=== PATIENT | female | born 1970 | race Caucasian/White ===

== ENCOUNTER 2019-08-16 17:28 | Emergency (ER) | payer BC ==
--- OUTSIDE RECORDS SUMMARY | 2019-08-16 17:30 | XMS REPORT | Summary of Care ---
:1970 Author Organization [facility] Address [address] [place] [address] Care Team Providers Name Role Phone Ana Patino MD Primary Care Provider Reason for Visit Reason Comments LAB Encounter Details Date Type Department Care Team Description 03/10/2019 Case Management Director Visit [facility] Wilman Rea MD [address] [place] [address] Menorrhagia with Professional Office 2, [facility] Lab irregular cycle Building Phlebotomy Lab Professional Office Building [address] [facility] , [address] [place] [address] Allergies Active Allergy Reactions Severity Noted Date Comments Morphine Nausea and/or Vomiting 08/22/2016 documented as of this encounter (statuses as of 03/10/2019) Medications Medication Sig Dispensed Refills Start Date End Date Status blood sugar Check fingerstick 1 Box 2 11/27/2018 Active diagnostic (ONETOUCH glucose 3 times a ULTRA BLUE TEST day before meals STRIP) stripIndications: Nausea and vomiting in adult patient sitaGLIPtin (JANUVIA) Take 1 tablet by 30 tablet 5 12/15/2018 Active 25 mg mouth daily. tabletIndications: Nausea and vomiting in adult patient metFORMIN 500 mg Take 1 tablet by 30 tablet 5 12/15/2018 Active tabletIndications: mouth daily. Nausea and vomiting in adult patient peg-electrolyte soln Take 4,000 mL by 4000 mL 0 01/08/2019 Active 236-22.74-6.74 -5.86 mouth gram SEE-INSTRUCTIONS. solutionIndications: Take as directed [facility], or Other Ordered Dose Route Frequency Start Date End Date Status Facility Administered Medication medroxyPROGESTERone 150 mg IM MONTHLY 03/10/2019 06/11/2019 Active (DEPO-PROVERA) injection 150 mg documented as of this encounter (statuses as of 03/10/2019) Active Problems Problem Noted Date Colon polyps 01/18/2019 Acid indigestion 01/08/2019 Overview: Added automatically from request for surgery [id number] Mammogram abnormal 12/24/2018 Overview: 12/24/18 - left breast normal. Right breast focal asymmetry in right upper outer breast. 12/30/18- Right breast ultrasound revealed localized dense breast tissue with 2 small cystic lesions noted at 11 and 12 o'clock. Category II. Annual b/l mammogram recommended. Hepatomegaly 12/20/2018 Anemia due to chronic blood loss 12/16/2018 Menorrhagia with irregular cycle 12/16/2018 Overview: 12/30/18 - EMB benign. DepoProvera started. Hematochezia 12/16/2018 Left ovarian cyst 12/16/2018 Intramural leiomyoma of uterus 12/16/2018 Overview: 12/24/18 - Pelvic US revealed a moderately enlarged uterus, measuring 12.7 x 7.4 x 8.6 cm with a large 5.5 x 4 cm size fibroid in the left side of uterus which is slightly distorting and pushing the endometrial lining. Endometrial echo complex is 12.3 mm. Right ovary measures 3.6 x 2.4 x 2.0 cm and left ovary measures 4.4 x 2.2 x 1.5 cm. Previously visualized left ovarian cyst in the CT scan of 11/26/2018 has decreased in size and it is measuring approximately 16 mm at this time. 24 mm cyst also noted in the right ovary containing thick fluid. Small bilateral ovarian cysts, likely physiologic. Atypical chest pain 11/26/2018 Obesity (BMI 30-39.9) 11/26/2018 Type 2 diabetes mellitus without complication 11/26/2018 GAN (dyspnea on exertion) 11/26/2018 Dyslipidemia 11/26/2018 Family history of premature CAD 11/26/2018 documented as of this encounter (statuses as of 03/10/2019) Resolved Problems Problem Noted Date Resolved Date Nausea & vomiting 11/26/2018 12/15/2018 documented as of this encounter (statuses as of 03/10/2019) Social History Tobacco Use Types Packs/Day Years Used Date Never Smoker Smokeless Tobacco: Never Used Alcohol Use Drinks/Week oz/Week Comments No Sex Assigned at Date Recorded Not on file Job Start Date Occupation Industry Not on file Not on file Not on file Travel History Travel Start Travel End No recent travel history available. documented as of this encounter Last Filed Vital Signs Not on filedocumented in this encounter Plan of Treatment Date Type Specialty Care Team Description 03/16/2019 Office Visit Family Medicine Ana Patino MD [address] [place] [address] [place]NELLY [address] 04/07/2019 Nurse Visit Obstetrics & Gynecology Nurse, [facility] Name Type Priority Associated Diagnoses Order Schedule CBC WITH DIFFERENTIAL LAB Routine Menorrhagia with irregular Ordered: 03/10 cycle Health Maintenance Due Date Last Done Comments PNEUMOCOCCAL 0-64 YEARS COMBINED 1975 SERIES (1 of 1 - PPSV23) URINE MICROALBUMIN 1979 FOOT EXAM 1987 DTaP,Tdap,and Td Vaccines (1 - 02/12/1988 Tdap) Zoster Recombinant Vaccine 2019 (SHINGRIX) (1 of 2) INFLUENZA VACCINE (#1) 2019 HgA1C 05/28/2019 11/25/2018 LDL-C 11/27/2019 11/26/2018 CREATININE (SERUM) 11/28/2019 11/27/2018, 11/26/2018, 11/26/2018, Additional history exists MAMMOGRAM 12/25/2019 12/24/2018 EYE EXAM 01/06/2020 01/05/2019 PAP SMEAR 12/16/2021 12/16/2018 COLONOSCOPY 01/18/2022 01/18/2019, 01/18/2019 documented as of this encounter Results Not on filedocumented in this encounter Visit Diagnoses Diagnosis Menorrhagia with irregular cycle Excessive or frequent menstruation documented in this encounter Insurance Payer Benefit Plan Subscriber ID Effective Dates Phone Address Type / Group BCBS OF [facility] [id number] 2018-Beth [phone] [address] PPO/POS [place] [id number] [place] [address] [phone] (Work) documented as of this encounter
--- OUTSIDE RECORDS SUMMARY | 2019-08-16 17:30 | XMS REPORT ---
:1970 [facility] Address [address] Osorio [address] [place] [address] Care Team Providers Name Role Phone Unavailable Unavailable Unavailable Problems This patient has no known problems. Allergies, Adverse Reactions, Alerts This patient has no known allergies or adverse reactions. Medications This patient has no known medications.
--- OUTSIDE RECORDS SUMMARY | 2019-08-16 17:31 | XMS REPORT | Summary of Care ---
:1970 Author Organization [facility] Address [address] [place] [address] Care Team Providers Name Role Phone Ana Patino MD Primary Care Provider Reason for Visit Reason Comments Vaginal Bleeding Heavy Encounter Details Date Type Department Care Team Description 03/10/2019 Office Visit [facility] Women[facility] Dic[facility], Menorrhagia with irregular cycle (Primary Dx); Healthcare- Marilyn Stovall MD Intramural leiomyoma of uterus [address] [facility], [address] [facility] [address] [place] [address] [phone] Allergies Active Allergy Reactions Severity Noted Date [...] Overview: Added automatically from request for surgery [id number] Mammogram abnormal 12/24/2018 Overview: 12/24/18 - left [...] of this encounter Last Filed Vital Signs Vital Sign Reading Time Taken Comments Blood Pressure 152/87 03/10/2019 9:42 AM CDT Pulse 76 03/10/2019 9:42 AM CDT Temperature 36.9 C (98.4 F) 03/10/2019 9:38 AM CDT Respiratory Rate 18 03/10/2019 9:38 AM CDT Oxygen Saturation - - Inhaled Oxygen Concentration - - Weight 81.5 kg (179 lb 9.6 oz) 03/10/2019 9:38 AM CDT Height - - Body Mass Index 33.94 01/26/2019 3:48 PM CDT documented in this encounter Progress Notes Shahida Gutiérrez RN - 03/10/2019 9:30 AM CDT49 year old female has been identified by and name. Verbal consent has been obtained by patientto have an injection of Depo Provera, as ordered by the provider. Date of last Depo Provera injection: 12/30/2018 Last Pap Smear: 12/16/2018 Encounter Diagnosis: AUB The site was cleaned with an alcohol swab and given intramuscularly (IM) in the left deltoid. A band aid dressing was then applied to the injection site. The patient tolerated the procedure well. RTCin 1 month for next shot. Understanding verbalized. ilman Rea MD - 03/10/2019 9:30 AM CDT Chief complaint: Chief Complaint Patient presents with Vaginal Bleeding Heavy HPI: The patient is a 49 yo HF LMP about 4 weeks ago who comes in for follow-up. I saw her initially on 12/16/18 regarding a number of gynecologic complaints. She was hospitalized in November for atypical chest pain and during that hospitalization, she was diagnosed with Type II DM. Hemoglobin A1C was 9.[address] scan of the abd/pelvis was done to LLQ pain and hematochezia. This revealed mildly thickened loops of fluid-filled small bowel within the left hemiabdomen c/w enteritis and there was a 5.5 cm x 4.9 cm x 5.1 cm intramural leiomyoma along the left anterior uterine body and a 3.1 cmlikely left ovarian cyst. She was started on Metformin and Januvia for her DM and the chest pain didnot appear to be cardiac. In terms of her gynecologic history, she reports heavy, prolonged, irregular menses for the last 1-2 years. She is s/p a prior tubal ligation and does not desire future . She was noted to be mildly anemic with a Hgb of 10 and her TSH was normal during her recent hospitalization. Her initial exam was notable for an enlarged uterus and left adnexal tenderness. A pap smear was normal, HPV co-testing was negative and a pelvic US on 12/24/18 revealed an enlarged uterus measuring approximately 12.7 x 7.4 x 8.6 cm with a large 5.5 x 4 cm size fibroid in the left side of uterus which is slightly distorting and pushing the endometrial lining. Endometrial stripe was 12.3 mm. The right ovary measured 3.6 x 2.4 x 2.0 cm with a small 2.4 cm cyst and the left ovary measured 4.4 x 2.2 x 1.5 cm with a benign appearing cyst measuring 1.5 cm. Endometrial sampling on 12/30/18 revealed a benign polyp. We discussed several options for her menstrual related symptoms and she opted forDepoProvera. She received her initial dose on 12/30/18 and was supposed to return in January for her second dose but is just now returning. A screening mammogram on 12/24/18 revealed some atypical features in the upper outer right breast. A right breast US on 12/30/18 revealed two small benign cysts for which annual f/u is recommended. Dr. Sarmiento performed upper and lower endoscopies on 01/18/19 which revealed a stomach polyp and a benign tubular adenoma in her colon. She was started on Protonix but stopped this on her own. A repeat colonoscopy should be done in 5 years. She returns today, reports that she has had several weeks of heavy bleeding with clots. She has not been taking her DM medications either and has an appointment next week with Dr. Patino. She is thinking about moving towards having a hysterectomy. Histories OB History Para Term AB Living 2 2 2 2 SAB TAB Ectopic Multiple Live Births 2 # Outcome Date GA Lbr Luis Miguel/2nd Weight Sex Delivery Anes PTL Lv 2 Term 1996 F VAGINAL ANNIE 1 Term 1990 M VAGINAL ANNIE Obstetric Comments 1 ectopic Past Medical History: Diagnosis Date Anemia due to chronic blood loss 12/16/2018 Atypical chest pain 11/26/2018 Colon polyps 01/18/2019 Dyslipidemia 11/26/2018 Heart murmur Hepatomegaly 12/20/2018 Intramural leiomyoma of uterus 12/16/2018 Obesity Transfusion history 1986 Type 2 diabetes mellitus without complication 11/26/2018 Family History Problem Relation Age of Onset Coronary Heart Disease Mother Coronary Heart Disease Father Colon Cancer Father Family Status Relation Name Status Mo Fa Past Surgical History: Procedure Laterality Date COLONOSCOPY N/A 01/18/2019 Surgeon: Vikki Sarmiento MD; Location: [facility] OR [facility] ESOPHAGOGASTRODUODENOSCOPY N/A 01/18/2019 Surgeon: Vikki Sarmiento MD; Location: [facility] OR [facility] OTHER some hip and knee surgeries TUBAL LIGATION Social History Socioeconomic History Marital status: Spouse name: Not on file Number of children: Not on file Years of education: Not on file Highest education level: Not on file Occupational History Not on file Social Needs Financial resource strain: Not on file Food insecurity: Worry: Not on file Inability: Not on file Transportation needs: Medical: Not on file Non-medical: Not on file Tobacco Use Smoking status: Never Smoker Smokeless tobacco: Never Used Substance and Sexual Activity Alcohol use: No Drug use: No Sexual activity: Yes Partners: Male control/protection: Surgical Lifestyle Physical activity: Days per week: Not on file Minutes per session: Not on file Stress: Not on file Relationships Social connections: Talks on phone: Not on file Gets together: Not on file Attends mormonism service: Not on file Active member of club or organization: Not on file Attends meetings of clubs or organizations: Not on file Relationship status: Not on file Intimate partner violence: Fear of current or ex partner: Not on file Emotionally abused: Not on file Physically abused: Not on file Forced sexual activity: Not on file Other Topics Concern Not on file Social History Narrative 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 Social History Substance and Sexual Activity Sexual Activity Yes Partners: Male control/protection: Surgical Labs I have reviewed the patient's labs. Radiology No new radiology. Allergies Giovanni is allergic to morphine. Medications Giovanni has a current medication list which includes the following prescription( s): peg-electrolyte soln, metformin, sitagliptin, and blood sugar diagnostic. Review of Systems Constitutional: Negative. Respiratory: Negative. Cardiovascular: Negative. Gastrointestinal: Negative. Genitourinary: Positive for menstrual problem and pelvic pain. Neurological: Negative. BP (!) 149/87 (BP Location: Left arm, Patient Position: Sitting, BP CUFF SIZE: Adult Medium) | Pulse 74 | Temp 36.9 C (98.4 F) (Oral) | Resp 18 | Wt 179 lb 9.6 oz (81.5 kg) | BMI 33.94 kg/m Pregravid BMI: Could not be calculated Physical Exam Vitals reviewed. Constitutional: She is oriented to person, place, and time. She appears well- developed and well-nourished. Cardiovascular: Regular rate and rhythm. Pulmonary/Chest: Normal inspiratory effort. Neuro/Psychiatric: She has a normal mood and affect. She is oriented to person, place, and time. Assessment/Plan Menorrhagia with irregular cycle (primary encounter diagnosis) Intramural leiomyoma of uterus Comment: I discussed with the patient that she needs to be compliant with treatment recommendations,especially with her DM medications. Poorly controlled DM poses an unacceptable surgical risks. That being said, doing a hysterectomy at this time is not going to be an option. I recommend that she restart monthly DepoProvera and f/u with me in 3 months. She was encouraged to restart her DM meds and follow any additional recommendations by Dr. Patino. Plan: RTC in 3 months Wilman Rea MD 03/10/2019 10:03 AM documented in this encounter Plan of Treatment Date Type Specialty Care Team Description 03/10/2019 Ride Operator Visit Phlebotomy Wilman Rea MD [address] [place] [address] Menorrhagia with 2, [facility] Lab irregular cycle 03/16/2019 Office Visit Family Medicine Ana Patino MD [address] [place] [address] [place]NELLY [address] 04/07/2019 Nurse Visit Obstetrics & Nurse, [facility] Gynecology Women's Health Name Type Priority Associated Diagnoses Order Schedule CBC WITH DIFF LAB Routine Menorrhagia with irregular Expected: 03/10/2019, cycle Expires: 06/10/2019 Health Maintenance Due Date Last Done Comments [...] Visit Diagnoses Diagnosis Menorrhagia with irregular cycle - Primary Excessive or frequent menstruation Intramural leiomyoma of uterus documented in this encounter Administered Medications Medication Order MAR Action Action Date Dose Rate Site medroxyPROGESTERone Given 03/10/2019 9:57 150 mg Left Deltoid-IM (DEPO-PROVERA) injection 150 AM CDT mg 150 mg, Intramuscular, MONTHLY, 3 doses, First dose on Fri03/10/19 at 1000, Last dose on Fri05/11/19 at 1000, Routine documented in this encounter Insurance Payer Benefit Plan Subscriber ID Effective Dates Phone Address Type / Group BCBS OF [facility] [id number] 2018-Prese [phone] [address] PPO/POS [place] nt [id number] [place] [address] [phone] (Work) documented as of this encounter"
--- OUTSIDE RECORDS SUMMARY | 2019-08-16 17:31 | XMS REPORT | Summary of Care ---
:1970 Author Organization [facility] [employer] [facility] Address [address] [place] [address] Care Team Providers Name Role Phone Ana Patino MD Primary Care Provider Reason for Visit Reason Comments Vaginal Bleeding Heavy Encounter Details Date Type Department Care Team Description 03/10/2019 Office Visit [facility] Women's Dic[facility], Menorrhagia with irregular cycle (Primary Dx); Healthcare- Marilyn Stovall MD Intramural leiomyoma of uterus [address] [facility], [address] [facility] [address] [place] [address] [phone] Allergies Active Allergy Reactions Severity Noted Date [...] Overview: Added automatically from request for surgery [id number] Mammogram abnormal 12/24/2018 Overview: 12/24/18 - left [...] N/A 01/18/2019 Surgeon: Vikki Sarmiento MD; Location: [facility] OR [facility] ESOPHAGOGASTRODUODENOSCOPY N/A 01/18/2019 Surgeon: Vikki Sarmiento MD; Location: [facility] OR [facility] OTHER some hip and knee [...] file Gets together: Not on file Attends methodist service: Not on file Active member of [...] 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 Social History Substance and [...] Date Type Specialty Care Team Description 03/10/2019 Manager Consumer Insights Visit Phlebotomy Wilman Rea MD [address] [place] [address] Menorrhagia with 2, Adc Lab irregular cycle 03/16/2019 Office Visit Family Medicine Ana Patino MD [address] [place] [address] [place] DONNELLY [address] 04/07/2019 Nurse Visit Obstetrics & Nurse, [facility] Gynecology Women's Health Name Type Priority Associated [...] Phone Address Type / Group BCBS OF [facility] [id number] 2018-Prese [phone] [address] PPO/POS [place] nt [id number] [place] [address] [phone] (Work) documented as of this encounter"
--- OUTSIDE RECORDS SUMMARY | 2019-08-16 17:32 | XMS REPORT | Summary of Care ---
:1970 Author Organization [facility] Address [address] [place] [address] Care Team Providers Name Role Phone Ana Patino MD Primary Care Provider Reason for Visit Reason Comments High Blood Sugar X 3 weeks LAB WORK Encounter Details Date Type Department Care Team Description 03/25/2019 [facility] Aspen Faulkner FNP Type 2 diabetes mellitus without complication, without long-term current use of insulin (Primary Dx); Medicine - [address] Essential hypertension; [address] [place] [address] [address] Flank pain [place], [place] [id number] [place], [place] [phone] [id number] Allergies Active Allergy Reactions Severity Noted Date Comments Morphine Nausea and/or Vomiting 08/22/2016 documented as of this encounter (statuses as of 03/25/2019) Medications Medication Sig Dispensed Refills Start Date End Date Status blood sugar Check fingerstick 1 Box 2 11/27/2018 Active diagnostic (ONETOUCH glucose 3 times a ULTRA BLUE TEST day before meals STRIP) stripIndications: Nausea and vomiting in adult patient sitaGLIPtin Take 1 tablet by 30 tablet 5 12/15/2018 Active (JANUVIA) 25 mg mouth daily. tabletIndications: Nausea and vomiting in adult patient metFORMIN 500 mg Take 1 tablet by 30 tablet 5 12/15/2018 Active tabletIndications: mouth daily. Nausea and vomiting in adult patient peg-electrolyte soln Take 4,000 mL by 4000 mL 0 01/08/2019 Active 236-22.74-6.74 -5.86 mouth gram SEE-INSTRUCTIONS. solutionIndications: Take as directed Hematochezia lisinopril 10 mg Take 1 tablet by 30 tablet 2 03/25/2019 06/23/2019 Active tabletIndications: mouth daily for 90 Type 2 diabetes days. mellitus without complication, without long-term current use of insulin, Essential hypertension Hospital, Clinic, or Other Ordered Dose Route Frequency Start Date End Date Status Facility Administered Medication medroxyPROGESTERone 150 mg IM MONTHLY 03/10/2019 06/11/2019 Active (DEPO-PROVERA) injection 150 mg documented as of this encounter (statuses as of 03/25/2019) Active Problems Problem Noted Date Colon polyps 01/18/2019 Acid indigestion 01/08/2019 Overview: Added automatically from request for surgery [id number] Mammogram abnormal 12/24/2018 Overview: 12/24/18 - left [...] as of this encounter (statuses as of 03/25/2019) Resolved Problems Problem Noted Date Resolved Date Nausea & vomiting 11/26/2018 12/15/2018 documented as of this encounter (statuses as of 03/25/2019) Social History Tobacco Use Types Packs/Day Years [...] Sign Reading Time Taken Comments Blood Pressure 140/70 03/25/2019 10:58 AM CDT Pulse 77 03/25/2019 10:58 AM CDT Temperature 36.9 C (98.5 F) 03/25/2019 10:58 AM CDT Respiratory Rate - - Oxygen Saturation 99% 03/25/2019 10:58 AM CDT Inhaled Oxygen Concentration - - Weight 81.6 kg (180 lb) 03/25/2019 10:58 AM CDT Height 154.9 cm (5' 1") 03/25/2019 10:58 AM CDT Body Mass Index 34.01 03/25/2019 10:58 AM CDT documented in this encounter Progress Notes Aspen Faulkner FNP - 03/25/2019 10:40 AM CDT Cc: Chief Complaint Patient presents with High Blood Sugar X 3 weeks LAB WORK Giovanni Jorge is a 49 year old female. Patient is a newly diagnosed diabetes, with initial A1C was 9. She is here as a 3 month follow up. Her blood sugars remain on average >250, and sometimes 300 's. Diabetes Mellitus Type II, Follow-up: Patient here for follow-up of Type 2 diabetes mellitus. Current symptoms/problems include uncontrolled blood sugar readings and have been since last visit. Symptoms have been present for few days. Known diabetic complications: peripheral neuropathy (bilateral foot pain and tingling sometimes, butjust came back from hiking trip and cardiovascular disease (persistent elevated blood pressures) Cardiovascular risk factors: family history, diabetes mellitus, obesity, sedentary life style and stress Current diabetic medications include Januvia and metformin. Eye exam current (within one year): yes Weight trend: Obesity, unchanged Prior visit with towel distributor: No but referral made last visit Current diet: Not as healthy ut working n it. Current exercise: None due to work scheduled Current monitoring regimen: office lab tests - q 3 months Home blood sugar records: Diabetes glucometer results average 250's fasting Any episodes of hypoglycemia? None Is She on SIMON inhibitor or angiotensin II receptor dewayne? No: will start today Allergies Giovanni is allergic to morphine. Medications Outpatient Medications Prior to Visit Medication Sig Dispense Refill peg-electrolyte soln 236-22.74-6.74 -5.86 gram solution Take 4,000 mL by mouth SEE-INSTRUCTIONS.Take as directed 4000 mL 0 metFORMIN 500 mg tablet Take 1 tablet by mouth daily. 30 tablet 5 sitaGLIPtin (JANUVIA) 25 mg tablet Take 1 tablet by mouth daily. 30 tablet 5 blood sugar diagnostic (ONETOUCH ULTRA BLUE TEST STRIP) strip Check fingerstick glucose 3 times a day before meals 1 Box 2 Facility-Administered Medications Prior to Visit Medication Dose Route Frequency Provider Last Rate Last Dose medroxyPROGESTERone (DEPO-PROVERA) injection 150 mg 150 mg Intramuscular MONTHLY Wilman Rea MD 150 mg at 03/10/19 0957 Histories Past Medical History: Diagnosis Date Anemia due to chronic blood loss 12/16/2018 Atypical chest pain 11/26/2018 Colon polyps 01/18/2019 Dyslipidemia 11/26/2018 Heart murmur Hepatomegaly 12/20/2018 Intramural leiomyoma of uterus 12/16/2018 Obesity Transfusion history 1987 Type 2 diabetes mellitus without complication 11/26/2018 Past Surgical History: Procedure Laterality Date COLONOSCOPY N/A 01/18/2019 Surgeon: Vikki Sarmiento MD; Location: [facility] OR [facility] ESOPHAGOGASTRODUODENOSCOPY N/A 01/18/2019 Surgeon: Vikki Sarmiento MD; Location: [facility] OR 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 Family History Problem Relation Age of Onset Coronary Heart Disease Mother Coronary Heart Disease Father Colon Cancer Father Review of Systems Constitutional: Positive for weight gain. Respiratory: Negative. Negative for apnea, cough, choking, chest tightness, shortness of breath andwheezing. Cardiovascular: Negative. Negative for chest pain, palpitations and leg swelling. Gastrointestinal: Negative. Skin: Negative. Neurological: Negative. Endocrine: Endocrine negativePositive for weight gain. diabetic Vital Signs BP (!) 140/70 (BP Location: Left arm, Patient Position: Sitting, BP CUFF SIZE: Adult Medium) | Pulse 77 | Temp 36.9 C (98.5 F) (Oral) | Ht 5' 1" (1.549 m) | Wt 180 lb (81.6 kg) | SpO2 99% | BMI 34.01 kg/m Physical Exam Constitutional: She is oriented to person, place, and time. She appears well- developed and well-nourished. HENT: Head: Normocephalic. Right Ear: External ear normal. Left Ear: External ear normal. Nose: Nose normal. Neck: Normal range of motion. Neck supple. Cardiovascular: Normal rate, regular rhythm, normal heart sounds and intact distal pulses. Exam reveals no gallop and no friction rub. No murmur heard. Pulses: Dorsalis pedis pulses are 3+ on the right side. Posterior tibial pulses are 3+ on the right side. Pulmonary/Chest: Effort normal and breath sounds normal. No respiratory distress. She has no wheezes. She has no rales. She exhibits no tenderness. Abdominal: Soft. Bowel sounds are normal. She exhibits no distension. There is no tenderness. There is CVA tenderness (bilateral). Feet: Right Foot: Skin Integrity: Negative for ulcer or skin breakdown. Left Foot: Skin Integrity: Negative for ulcer or skin breakdown. Neurological: She is alert and oriented to person, place, and time. Skin: Skin is warm and dry. Capillary refill takes less than 2 seconds. No rash noted. No erythema. No pallor. Psychiatric: She has a normal mood and affect. Nursing note and vitals reviewed. Sensory exam of the foot is normal, tested with the monofilament. Good pulses, no lesions or ulcers,good peripheral pulses. Assessment/Plan 1. Diabetes II: will re-eval A1C, with lipids, CMP, microalbumin. Continue current anti-diabetic medication(s). Reviewed the principles of following a diabetic diet including the concept of glycemic index. Exercise regularly. Self monitor glucose once daily beforebreakfast and bring record to each visit. Continue care with the Household Chores at least annually for diabetic eye exam. See the Undercutter Operator for routine foot care and diabetic shoes if appropriate. A1C to be repeated in 3 months if still not at goal or improved at all with the current regimen. 2. Obesity, Nutritional counseling, Exercise counseling Continue care with scoop operator as referral was already made. Routine exercise and healthy diet encouraged. Nutritional/Exercise Counseling and Education: - Counseled on diet, exercise, weight control and goals 3.Hypertension: Will initiate therapy with lisinopril 10mg for the persistent elevated blood pressures as well as for nephroprotection. TSH, CMP, CBC Ordered. Monitor blood pressures at home routinely, first thing in the morning and last thing before bed, record the readings. If consistently >130/80, please RTC for medication management. If with acute chestpain, jaw pain, numbness and tingling radiating to arm, with or without respiratory distress, please go to the ER. 4. Flank pain on exam: UA and culture added to lab to r/o acute bladder infection. Hydration and proper hygiene encouraged. Further interventions to follow depending on study results. Plan of care, desired health behaviors, goals, and medication discussed with patient. Education resources provided and reviewed with AVS. Patient/guardian/family verbalized understanding & agrees to plan of care. This visit did not involve counseling and coordination that comprised more than 50% of the visit time. If applicable, the [facility] database was accessed to review any controlled substance prescription claims data. The [employer] prescription claims data in [employer] was reviewed to assess patient compliance with the medication treatment plan. lsy Hassan - 03/25/2019 10:40 AM CDTVenipuncture Collection performed by clean technique. Total of 1 attempts were made. Slight pressureand a bandage/ dressing were applied to the site(s). The patient experienced no complications. Specimens were sent processed to [facility] laboratories. documented in this encounter Plan of Treatment Date Type Specialty Care Team Description 04/07/2019 Nurse Visit Obstetrics & Gynecology Nurse, [facility] Women's Health 06/24/2019 Office Visit Family Medicine Ana Patino MD [address] [place] [address] [place] [address] Name Type Priority Associated Diagnoses Date/Time MICROALBUMIN URINE LAB Routine Type 2 diabetes mellitus 03/25/2019 11:26 AM CDT without complication, without long-term current use of insulin URINALYSIS LAB Routine Flank pain 03/25/2019 11:26 AM CDT URINE CULTURE LAB Routine Flank pain 03/25/2019 11:26 AM CDT Health Maintenance Due Date Last Done Comments [...] 01/18/2019, 01/18/2019 documented as of this encounter Procedures Procedure Name Priority Date/Time Associated Comments Diagnosis CBC WITH DIFFERENTIAL Routine 03/25/2019 11:23 Type 2 diabetes Results for this AM CDT mellitus without procedure are in complication, the results without long-term section. current use of insulin GLYCOSYLATED Routine 03/25/2019 11:23 Type 2 diabetes Results for this HEMOGLOBIN (A1C) AM CDT mellitus without procedure are in complication, the results without long-term section. current use of insulin CBC WITH DIFF Routine 03/25/2019 11:23 Type 2 diabetes Results for this AM CDT mellitus without procedure are in complication, the results without long-term section. current use of insulin LIPID PANEL Routine 03/25/2019 11:23 Type 2 diabetes Results for this ([id number])(TOTAL AM CDT mellitus without procedure are in CHOLESTEROL, complication, the results TRIGLYCERIDES, HDL) without long-term section. current use of insulin COMP. METABOLIC PANEL Routine 03/25/2019 11:23 Type 2 diabetes Results for this (68904) AM CDT mellitus without procedure are in complication, the results without long-term section. current use of insulin THYROID STIMULATING Routine 03/25/2019 11:23 Type 2 diabetes Results for this HORMONE AM CDT mellitus without procedure are in complication, the results without long-term section. current use of insulin documented in this encounter Results CBC WITH DIFFERENTIAL (03/25/2019 11:23 AM CDT) WBC 7.53 4.30 - 11.10 [facility] 10*3/L [facility] RBC 4.52 3.93 - 5.25 [facility] 10*6/L [facility] HGB 11.5 (L) 11.6 - 15.0 [facility] g/dL [facility] HCT 34.9 (L) 35.7 - 45.2 % [facility] MCV 77.2 (L) 80.6 - 95.5 fL [facility] MCH 25.4 (L) 25.9 - 32.8 pg [facility] MCHC 33.0 31.6 - 35.1 [facility] g/dL [facility] RDW-SD 43.0 39.0 - 49.9 fL [facility] RDW-CV 15.4 12.0 - 15.5 % [facility] PLT 316 166 - 358 [facility] 10*3/L [facility] MPV 8.9 (L) 9.5 - 12.9 fL [facility] NRBC/100 WBC 0.0 0.0 - 10.0 /100 [facility] WBCs [facility] NRBC x10^3 <0.01 10*3/L [facility] GRAN MAT (NEUT) % 44.2 % [facility] IMM GRAN % 0.50 % [facility] LYMPH % 45.6 % [facility] MONO % 7.2 % [facility] EOS % 2.0 % [facility] BASO % 0.5 % [facility] GRAN MAT x10^3(ANC) 3.33 1.88 - 7.09 [facility] 10*3/uL [facility] IMM GRAN x10^3 0.04 0.00 - 0.06 [facility] 10*3/uL [facility] LYMPH x10^3 3.43 (H) 1.32 - 3.29 [facility] 10*3/uL [facility] MONO x10^3 0.54 0.33 - 0.92 [facility] 10*3/uL [facility] EOS x10^3 0.15 0.03 - 0.39 [facility] 10*3/uL [facility] BASO x10^3 0.04 0.01 - 0.07 [facility] 10*3/uL [facility] Specimen Blood - ARM, LEFT Performing Organization Address City/State/Zipcode Phone Number [facility] CLIA: [id number], [address] [place] [address] LIPID PANEL ([id number])(TOTAL CHOLESTEROL, TRIGLYCERIDES, HDL) (03/25/2019 11:23 AM CDT) CHOL 203 (H) 120 - 200 mg/dL [facility] HDL 56 >50 mg/dL [facility] HDLC RATIO 3.6 <=4.5 [facility] TRIG 147 30 - 170 mg/dL [facility] LDL CHOL 118 <=160 mg/dL [facility] VLDL 29 5 - 60 mg/dL [facility] Specimen Blood - ARM, LEFT Performing Organization Address [facility] Phone Number [facility] CLIA: [id number], [address] [place] [address] THYROID STIMULATING HORMONE (03/25/2019 11:23 AM CDT) TSH 1.83 0.45 - 4.70 mIU/L [facility] Specimen Blood - ARM, LEFT Performing Organization Address [facility] Phone Number [facility] CLIA: [id number], [address] [place] [address] COMP. METABOLIC PANEL ([id number]) (03/25/2019 11:23 AM CDT) NA 141 135 - 145 [facility] mmol/L [facility] K 4.6 3.5 - 5.0 [facility] mmol/L [facility] CL 107 98 - 108 mmol/L [facility] CO2 TOTAL 20 (L) 23 - 31 mmol/L [facility] AGAP 14 2 - 16 [facility] BUN 10 7 - 23 mg/dL [facility] GLUCOSE 306 (H) 70 - 110 mg/dL [facility] CREATININE 0.59 0.50 - 1.04 [facility] mg/dL [facility] TOTAL BILI 0.4 0.1 - 1.1 mg/dL [facility] CALCIUM 9.4 8.6 - 10.6 [facility] mg/dL [facility] T PROTEIN 8.0 6.3 - 8.2 g/dL [facility] ALBUMIN 4.5 3.5 - 5.0 g/dL [facility] ALK PHOS 102 34 - 122 U/L [facility] ALT(SGPT) 20 9 - 51 U/L [facility] AST(SGOT) 24 13 - 40 U/L [facility] eGFR Calculation 107.9 mL/min/1.73m2 [facility] (Non[facility] LABORATORY [place]) eGFR Calculation 130.8 mL/min/1.73m2 [facility] () [facility] Specimen Blood - ARM, LEFT Narrative Performed At Association of Glomerular Filtration Rate (GFR) [facility] LABORATORY and Staging of Kidney Disease* + + +- + | GFR (mL/min/1.73 m2)| With Kidney Damage|Without Kidney Damage + + +- + |>90| Stage one| Normal + + +- + |60-89|S tage two| Decreased GFR + + +- + |30-59|S tage three| Stage three + + +- + |15-29|S tage four | Stage four + + +- + |<15 (or dialysis)|Stage five | Stage five + + +- + *Each stage assumes the associated GFR level has been in effect for at least three months.Stages 1 to 5, with or without kidney disease, indicate chronic kidney disease. Notes: Determination of stages one and two (with eGFR >59mL/min/1.73 m2) requires estimation of kidney damage for at least three months as defined by structural or functional abnormalities of the kidney, manifested by either: Pathological abnormalities or Markers of kidney damage (including abnormalities in the composition of the blood or urine or abnormalities in imaging tests). Performing Organization Address City/[facility] Phone Number [facility] CLIA: [id number], [address] [place] [address] GLYCOSYLATED HEMOGLOBIN (A1C) (03/25/2019 11:23 AM CDT) HGB A1C 10.2 (H) 4.0 - 6.0 % [facility] Specimen Blood - ARM, LEFT Narrative Performed At %A1C ([facility]) Interpretation (ADA) [facility]ORY 4.8-5.6 Normal or (Non-Diabetic Range) 5.7-6.4 Increased Risk (Pre-Diabetic) >6.5Diabetes Indicated Performing Organization Address City/State/[facility] Phone Number [facility] CLIA: [id number], [address] [place] [address] documented in this encounter Visit Diagnoses Diagnosis Type 2 diabetes mellitus without complication, without long-term current use of insulin - Primary Essential hypertension Unspecified essential hypertension Flank pain Abdominal pain, unspecified site documented in this encounter Insurance Payer Benefit Plan Subscriber ID Effective Dates Phone Address Type / Group [employer] [id number] 2018-Prese [phone] [address] PPO/POS [facility] [id number] [place] [address] [phone] (Work) documented as of this encounter
--- OUTSIDE RECORDS SUMMARY | 2019-08-16 17:32 | XMS REPORT | Summary of Care ---
:1970 Author Organization [facility] Address [address] [place] [address] Care Team Providers Name Role Phone Ana Patino MD Primary Care Provider Reason for Visit Reason Comments High Blood Sugar X 3 weeks LAB WORK Encounter Details Date Type Department Care Team Description 03/25/2019 Office Visit [facility] Family Aspen Faulkner FNP Type 2 diabetes mellitus without complication, without long-term current use of insulin (Primary Dx); Medicine - [address] Essential hypertension; [address] [place] [address] [address] [place]ank [place], [place] [id number] [place] [phone] Allergies Active Allergy Reactions Severity Noted [...] Overview: Added automatically from request for surgery [id number] Mammogram abnormal 12/24/2018 Overview: 12/24/18 - left [...] Weight trend: Obesity, unchanged Prior visit with health evaluator: No but referral made last visit Current [...] N/A 01/18/2019 Surgeon: Vikki Sarmiento MD; Location: [facility] OR [facility] ESOPHAGOGASTRODUODENOSCOPY N/A 01/18/2019 Surgeon: Vikki Sarmiento MD; Location: [facility] OR [facility] OTHER some hip and knee surgeries TUBAL [...] file Gets together: Not on file Attends yazdanism service: Not on file Active member of [...] 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 Family History Problem Relation [...] to each visit. Continue care with the Distance Learning Unit Leader at least annually for diabetic eye exam. See the Director Strategy for routine foot care and diabetic shoes if appropriate. A1C to be repeated in 3 months if still not at goal or improved at all with the current regimen. 2. Obesity, Nutritional counseling, Exercise counseling Continue care with cash sales audit clerk as referral was already made. Routine exercise [...] of the visit time. If applicable, the [facility] database was accessed to review any controlled substance prescription claims data. The [employer] prescription claims data in [place] was reviewed to assess patient compliance with the medication treatment plan. lsy Hassan - 03/25/2019 10:40 AM CDTVenipuncture Collection performed by clean technique. Total of 1 attempts were made. Slight pressureand a bandage/ dressing were applied to the site(s). The patient experienced no complications. Specimens were sent processed to [facility] laboratories. documented in this encounter Plan of Treatment Date Type Specialty Care Team Description 04/07/2019 Nurse Visit Obstetrics & Gynecology Nurse, [facility] Women's Health 06/24/2019 Office Visit Family Medicine Ana Patino MD [address] [place] [address] [place] [address] Name Type Priority Associated Diagnoses Date/Time [...] 11:23 Type 2 diabetes Results for this (27160)(TOTAL AM CDT mellitus without procedure are in CHOLESTEROL, complication, the results TRIGLYCERIDES, HDL) without long-term section. current use of insulin COMP. METABOLIC PANEL Routine 03/25/2019 11:23 Type 2 diabetes Results for this (76913) AM CDT mellitus without procedure are in complication, the results without long-term section. current use of insulin THYROID STIMULATING Routine 03/25/2019 11:23 Type 2 diabetes Results for this HORMONE AM CDT mellitus without procedure are in complication, the results without long-term section. current use of insulin documented in this encounter Results CBC WITH DIFFERENTIAL (03/25/2019 11:23 AM CDT) WBC 7.53 4.30 - 11.10 [facility] 10*3/L [facility] RBC 4.52 3.93 - 5.25 [facility] 10*6/L [facility] HGB 11.5 (L) 11.6 - 15.0 [facility] g/dL [facility] HCT 34.9 (L) 35.7 - 45.2 % [facility] MCV 77.2 (L) 80.6 - 95.5 fL [facility] MCH 25.4 (L) 25.9 - 32.8 pg [facility] MCHC 33.0 31.6 - 35.1 [facility] g/dL [facility] RDW-SD 43.0 39.0 - 49.9 fL [facility] RDW-CV 15.4 12.0 - 15.5 % [facility] PLT 316 166 - 358 [facility] 10*3/L [facility] MPV 8.9 (L) 9.5 - 12.9 fL [facility] NRBC/100 WBC 0.0 0.0 - 10.0 /100 [facility] WBCs [facility] NRBC x10^3 <0.01 10*3/L [facility] GRAN MAT (NEUT) % 44.2 % [facility] IMM GRAN % 0.50 % [facility] LYMPH % 45.6 % [facility] MONO % 7.2 % [facility] EOS % 2.0 % [facility] BASO % 0.5 % [facility] GRAN MAT x10^3(ANC) 3.33 1.88 - 7.09 [facility] 10*3/uL [facility] IMM GRAN x10^3 0.04 0.00 - 0.06 [facility] 10*3/uL [facility] LYMPH x10^3 3.43 (H) 1.32 - 3.29 [facility] 10*3/uL [facility] MONO x10^3 0.54 0.33 - 0.92 [facility] 10*3/uL [facility] EOS x10^3 0.15 0.03 - 0.39 [facility] 10*3/uL [facility] BASO x10^3 0.04 0.01 - 0.07 [facility] 10*3/uL [facility] Specimen Blood - ARM, LEFT Performing Organization Address City/State/Zipcode Phone Number [facility] CLIA: [id number], [address] [place] [address] LIPID PANEL (40213)(TOTAL CHOLESTEROL, TRIGLYCERIDES, HDL) (03/25/2019 11:23 AM CDT) CHOL 203 (H) 120 - 200 mg/dL [facility] HDL 56 >50 mg/dL [facility] HDLC RATIO 3.6 <=4.5 [facility] TRIG 147 30 - 170 mg/dL [facility] LDL CHOL 118 <=160 mg/dL [facility] VLDL 29 5 - 60 mg/dL [facility] Specimen Blood - ARM, LEFT Performing Organization Address [facility] Phone Number [facility] CLIA: [id number], [address] [place] [address] THYROID STIMULATING HORMONE (03/25/2019 11:23 AM CDT) TSH 1.83 0.45 - 4.70 mIU/L [facility] Specimen Blood - ARM, LEFT Performing Organization Address [facility] Phone Number [facility] CLIA: [id number], [address] [place] [address] COMP. METABOLIC PANEL (37729) (03/25/2019 11:23 AM CDT) NA 141 135 - 145 [facility] mmol/L [facility] K 4.6 3.5 - 5.0 [facility] mmol/L [facility] CL 107 98 - 108 mmol/L [facility] CO2 TOTAL 20 (L) 23 - 31 mmol/L [facility] AGAP 14 2 - 16 [facility] BUN 10 7 - 23 mg/dL [facility] GLUCOSE 306 (H) 70 - 110 mg/dL [facility] CREATININE 0.59 0.50 - 1.04 [facility] mg/dL [facility] TOTAL BILI 0.4 0.1 - 1.1 mg/dL [facility] CALCIUM 9.4 8.6 - 10.6 [facility] mg/dL [facility] T PROTEIN 8.0 6.3 - 8.2 g/dL [facility] ALBUMIN 4.5 3.5 - 5.0 g/dL [facility] ALK PHOS 102 34 - 122 U/L [facility] ALT(SGPT) 20 9 - 51 U/L [facility] AST(SGOT) 24 13 - 40 U/L [facility] eGFR Calculation 107.9 mL/min/1.73m2 [facility] (Non[facility]ORATORY English) eGFR Calculation 130.8 mL/min/1.73m2 [facility] () [facility] Specimen Blood - ARM, LEFT Narrative Performed At Association of Glomerular Filtration Rate (GFR) [facility] and Staging of Kidney Disease* + [...] abnormalities in imaging tests). Performing Organization Address City/[facility] Phone Number [facility] CLIA: [id number], [address] [place] [id number] [facility] [address] GLYCOSYLATED HEMOGLOBIN (A1C) (03/25/2019 11:23 AM CDT) HGB A1C 10.2 (H) 4.0 - 6.0 % NGSP [facility] Specimen Blood - ARM, LEFT Narrative Performed At %A1C (NGSP) Interpretation (ADA) [facility] 4.8-5.6 Normal or (Non-Diabetic Range) 5.7-6.4 Increased Risk (Pre-Diabetic) >6.5Diabetes Indicated Performing Organization Address City/State/[facility] Phone Number [facility] CLIA: [id number], [address] [place] [address] documented in this encounter Visit Diagnoses Diagnosis Type 2 diabetes mellitus without complication, without long-term current use of insulin - Primary Essential hypertension Unspecified essential hypertension Flank pain Abdominal pain, unspecified site documented in this encounter Insurance Payer Benefit Plan Subscriber ID Effective Dates Phone Address Type / Group BCBS [facility] [id number] 2018-Prese [phone] [address] PPO/POS [facility] [id number] [place] [address] [phone] (Work) documented as of this encounter
--- OUTSIDE RECORDS SUMMARY | 2019-08-16 17:32 | XMS REPORT | Summary of Care ---
:1970 Author Organization [facility] Address [address] [place] [id number] Care Team Providers Name Role Phone Ana Patino MD Primary Care Provider Reason for Visit Reason Comments High Blood Sugar X 3 weeks LAB WORK Encounter Details Date Type Department Care Team Description 03/25/2019 Office Visit [facility] Family Aspen Faulkner FNP Type 2 diabetes mellitus without complication, without long-term current use of insulin (Primary Dx); [address] Essential hypertension; [address] [place] [address] [address] Flank pain; [place], [place] [id number] Acute cystitis with hematuria; [address] [place], [place] Nausea and vomiting in adult patient [phone] Allergies Active Allergy Reactions Severity Noted Date Comments Morphine Nausea and/or Vomiting 08/22/2016 documented as of this encounter (statuses as of 03/26/2019) Medications Medication Sig Dispensed Refills Start Date End Date Status blood sugar Check 1 Box 2 11/27/2018 Active diagnostic fingerstick (ONETOUCH ULTRA glucose 3 times BLUE TEST STRIP) a day before stripIndications: meals Nausea and vomiting in adult patient sitaGLIPtin Take 1 tablet by 30 tablet 5 12/15/2018 Active (JANUVIA) 25 mg mouth daily. tabletIndications: Nausea and vomiting in adult patient peg-electrolyte Take 4,000 mL by 4000 mL 0 01/08/2019 Active soln [id number] mouth -5.86 gram SEE-INSTRUCTIONS solutionIndications . Take as : Hematochezia directed lisinopril 10 mg Take 1 tablet by 30 tablet 2 03/25/2019 Active tabletIndications: mouth daily for 9 Type 2 diabetes 90 days. mellitus without complication, without long-term current use of insulin, Essential hypertension ciprofloxacin HCl Take 1 tablet by 6 tablet 0 03/25/2019 Active (CIPRO) 250 mg mouth every 12 9 tabletIndications: (twelve) hours Acute cystitis with for 3 days. hematuria metFORMIN 500 mg Take 2 tablets 90 tablet 1 03/26/2019 Active tabletIndications: by mouth 2 (two) Nausea and vomiting times daily with in adult patient meals. metFORMIN 500 mg Take 1 tablet by 30 tablet 5 12/15/2018 Discontinued tabletIndications: mouth daily. 9 Nausea and vomiting in adult patient Hospital, Clinic, or Other Ordered Dose Route Frequency Start Date End Date Status Facility Administered Medication medroxyPROGESTERone 150 mg IM MONTHLY 03/10/2019 06/11/2019 Active (DEPO-PROVERA) injection 150 mg documented as of this encounter (statuses as of 03/26/2019) Active Problems Problem Noted Date Colon polyps 01/18/2019 Acid indigestion 01/08/2019 Overview: Added automatically from request for surgery [id number] Mammogram abnormal 12/24/2018 Overview: 12/24/18 - left [...] as of this encounter (statuses as of 03/26/2019) Resolved Problems Problem Noted Date Resolved Date Nausea & vomiting 11/26/2018 12/15/2018 documented as of this encounter (statuses as of 03/26/2019) Social History Tobacco Use Types Packs/Day Years [...] Weight trend: Obesity, unchanged Prior visit with explosive operator supervisor: No but referral made last visit Current [...] N/A 01/18/2019 Surgeon: Vikki Sarmiento MD; Location: [facility] OR [facility] ESOPHAGOGASTRODUODENOSCOPY N/A 01/18/2019 Surgeon: Vikki Sarmiento MD; Location: [facility] OR Location OTHER some hip and knee surgeries TUBAL [...] file Gets together: Not on file Attends orthodox service: Not on file Active member of [...] 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 Family History Problem Relation [...] to each visit. Continue care with the Member Certification Manager at least annually for diabetic eye exam. See the Accountant Budget for routine foot care and diabetic shoes if appropriate. A1C to be repeated in 3 months if still not at goal or improved at all with the current regimen. 2. Obesity, Nutritional counseling, Exercise counseling Continue care with senior design engineer as referral was already made. Routine exercise [...] of the visit time. If applicable, the [facility] database was accessed to review any controlled substance prescription claims data. The [employer] prescription claims data in [employer] was reviewed to assess patient compliance with the medication treatment plan. lsy Hassan - 03/25/2019 10:40 AM CDTVenipuncture Collection performed by clean technique. Total of 1 attempts were made. Slight pressureand a bandage/ dressing were applied to the site(s). The patient experienced no complications. Specimens were sent processed to [facility] laboratories. documented in this encounter Plan of Treatment Date Type Specialty Care Team Description 04/07/2019 Nurse Visit Obstetrics & Gynecology Nurse, [facility] 06/24/2019 Office Visit Family Medicine Ana Patino MD [address] [place] [place] [address] [place] [address] Name Type Priority Associated Diagnoses Order Schedule GLYCOSYLATED HEMOGLOBIN LAB Routine Type 2 diabetes mellitus Expected: , (A1C) without complication, Expires: 07/26/2019 without long-term current use of insulin COMP. METABOLIC PANEL LAB Routine Type 2 diabetes mellitus Expected: 2018, (29337) without complication, Expires: 07/26/2019 without long-term current use of insulin Essential hypertension Health Maintenance Due Date Last Done Comments PNEUMOCOCCAL 0-64 YEARS COMBINED 1975 SERIES (1 of 1 - PPSV23) URINE MICROALBUMIN 1979 FOOT EXAM 1987 DTaP,Tdap,and Td Vaccines (1 - 02/12/1988 Tdap) Zoster Recombinant Vaccine 2019 (SHINGRIX) (1 of 2) INFLUENZA VACCINE (#1) 2019 HgA1C 09/23/2019 03/25/2019, 11/25/2018 MAMMOGRAM 12/25/2019 12/24/2018 EYE EXAM 01/06/2020 01/05/2019 CREATININE (SERUM) 03/25/2020 03/25/2019, 11/27/2018, 11/26/2018, Additional history exists LDL-C 03/25/2020 03/25/2019, 11/26/2018 PAP SMEAR 12/16/2021 12/16/2018 COLONOSCOPY 01/18/2022 01/18/2019, 01/18/2019 documented as of this encounter Procedures Procedure Name Priority Date/Time Associated Comments Diagnosis URINE CULTURE Routine 03/25/2019 11:26 Flank pain Results for this AM CDT procedure are in the results section. URINALYSIS Routine 03/25/2019 11:26 Flank pain Results for this AM CDT procedure are in the results section. MICROALBUMIN URINE Routine 03/25/2019 11:26 Type 2 diabetes Results for this AM CDT mellitus without procedure are in complication, the results without long-term section. current use of insulin CBC WITH DIFFERENTIAL Routine 03/25/2019 11:23 Type [...] 11:23 Type 2 diabetes Results for this (50174)(TOTAL AM CDT mellitus without procedure are in CHOLESTEROL, complication, the results TRIGLYCERIDES, HDL) without long-term section. current use of insulin COMP. METABOLIC PANEL Routine 03/25/2019 11:23 Type 2 diabetes Results for this (44257) AM CDT mellitus without procedure are in complication, the results without long-term section. current use of insulin THYROID STIMULATING Routine 03/25/2019 11:23 Type 2 diabetes Results for this HORMONE AM CDT mellitus without procedure are in complication, the results without long-term section. current use of insulin documented in this encounter Results URINE CULTURE (03/25/2019 11:26 AM CDT) URINE CULTURE No aerobic growth [facility] (< 1000 CFU/mL) SERVICES Specimen Urine - URINE, CLEAN CATCH Performing Organization Address [facility] Phone Number [facility] CLIA: [id number], [address] [place] [address] [facility] URINALYSIS (03/25/2019 11:26 AM CDT) APPEARANCE Clear Clear [facility] COLOR Yellow Yellow [facility] PH 5.0 4.8 - 8.0 [facility] SP GRAVITY 1.014 1.003 - 1.030 [facility] GLU U QUAL 500 mg/dL (A) Normal [facility] BLOOD Negative Negative [facility] KETONES 5 mg/dL (A) Negative [facility] PROTEIN Negative Negative [facility] UROBILIN Normal Normal [facility] BILIRUBIN Negative Negative [facility] NITRITE Negative Negative [facility] LEUK DONAVON Negative Negative [facility] RBC/HPF 1 0 - 3 HPF [facility] WBC/HPF 42 (H) 0 - 5 HPF [facility] BACTERIA Moderate (A) Negative [facility] MUCOUS Slight (A) Negative LPF [facility] SQ EPITH 1 HPF [facility] Specimen Urine - URINE, CLEAN CATCH Performing Organization Address [facility] Phone Number [facility] CLIA: [id number], [address] [place] [address] MICROALBUMIN URINE (03/25/2019 11:26 AM CDT) CREAT U 25.7 mg/dL [facility] MICROALB U 4 0 - 45 ug/mL [facility] MICROAL/CR 1,759 0-3,500 ug/mmol [facility] creatinine SERVICES Specimen Urine - URINE, CLEAN CATCH Performing Organization Address [facility] Phone Number [facility] CLIA: [id number], [address] [place] [address] [facility] CBC WITH DIFFERENTIAL (03/25/2019 11:23 AM CDT) WBC 7.53 4.30 - 11.10 [facility] 10*3/L [facility] RBC 4.52 3.93 - 5.25 [facility] 10*6/L [facility] HGB 11.5 (L) 11.6 - 15.0 [facility] g/dL [facility] HCT 34.9 (L) 35.7 - 45.2 % [facility] MCV 77.2 (L) 80.6 - 95.5 fL [facility] MCH 25.4 (L) 25.9 - 32.8 pg [facility] MCHC 33.0 31.6 - 35.1 [facility] g/dL [facility] RDW-SD 43.0 39.0 - 49.9 fL [facility] RDW-CV 15.4 12.0 - 15.5 % [facility] PLT 316 166 - 358 [facility] 10*3/L [facility] MPV 8.9 (L) 9.5 - 12.9 fL [facility] NRBC/100 WBC 0.0 0.0 - 10.0 /100 [facility] WBCs [facility] NRBC x10^3 <0.01 10*3/L [facility] [...] GRAN MAT x10^3(ANC) 3.33 1.88 - 7.09 [facility] 10*3/uL [facility] IMM GRAN x10^3 0.04 0.00 - 0.06 [facility] 10*3/uL [facility] LYMPH x10^3 3.43 (H) 1.32 - 3.29 [facility] 10*3/uL [facility] MONO x10^3 0.54 0.33 - 0.92 [facility] 10*3/uL [facility] EOS x10^3 0.15 0.03 - 0.39 [facility] 10*3/uL [facility] BASO x10^3 0.04 0.01 - 0.07 [facility] 10*3/uL [facility] Specimen Blood - ARM, LEFT Performing Organization Address [facility] Phone Number [facility] CLIA: [id number], [address] [place] [id number] [address] LIPID PANEL ([id number])(TOTAL CHOLESTEROL, TRIGLYCERIDES, HDL) (03/25/2019 11:23 AM CDT) [...] Blood - ARM, LEFT Performing Organization Address [facility] Phone Number [facility] CLIA: [id number], [address] [place] [id number] THYROID STIMULATING HORMONE (03/25/2019 11:23 AM CDT) TSH 1.83 0.45 - 4.70 mIU/L [facility] Specimen Blood - ARM, LEFT Performing Organization Address [facility] Phone Number [facility] CLIA: [id number], [address] [place] [id number] COMP. METABOLIC PANEL ([id number]) (03/25/2019 11:23 AM CDT) NA 141 135 - 145 [facility] mmol/L [facility] K 4.6 3.5 - 5.0 [facility] mmol/L [facility] CL 107 98 - 108 mmol/L [facility] CO2 TOTAL 20 (L) 23 - 31 mmol/L [facility] AGAP 14 2 - 16 [facility] BUN 10 7 - 23 mg/dL [facility] GLUCOSE 306 (H) 70 - 110 mg/dL [facility] CREATININE 0.59 0.50 - 1.04 [facility] mg/dL [facility] TOTAL BILI 0.4 0.1 - 1.1 mg/dL [facility] CALCIUM 9.4 8.6 - 10.6 [facility] mg/dL [facility] T PROTEIN 8.0 6.3 - 8.2 g/dL [facility] ALBUMIN 4.5 3.5 - 5.0 g/dL [facility] ALK PHOS 102 34 - 122 U/L [facility] ALT(SGPT) 20 9 - 51 U/L [facility] AST(SGOT) 24 13 - 40 U/L [facility] eGFR Calculation 107.9 mL/min/1.73m2 [facility] (Non-[facility]ORATORY French) eGFR Calculation 130.8 mL/min/1.73m2 [facility] () [facility] Specimen Blood - ARM, LEFT [...] abnormalities in imaging tests). Performing Organization Address City/State/Zipcode Phone Number [facility] CLIA: [id number], [address] [place] [address] GLYCOSYLATED HEMOGLOBIN (A1C) (03/25/2019 11:23 AM CDT) HGB A1C 10.2 (H) 4.0 - 6.0 % NGSP [facility] Specimen Blood - ARM, LEFT Narrative Performed At %A1C (NGSP) Interpretation (ADA) [facility] 4.8-5.6 Normal or (Non-Diabetic Range) 5.7-6.4 Increased Risk (Pre-Diabetic) >6.5Diabetes Indicated Performing Organization Address City/State/Zipcode Phone Number [facility] CLIA: [id number], [address] [place] [address] documented in this encounter Visit Diagnoses Diagnosis Type 2 diabetes mellitus without complication, without long-term current use of insulin - Primary Essential hypertension Unspecified essential hypertension Flank pain Abdominal pain, unspecified site Acute cystitis with hematuria Acute cystitis Nausea and vomiting in adult patient Nausea with vomiting documented in this encounter Insurance Payer Benefit Plan Subscriber ID Effective Dates Phone Address Type / Group BCBS OF [facility] [id number] 2018-Prese [phone] [address] PPO/POS [facility] [id number] [place] [address] [phone] (Work) documented as of this encounter
--- OUTSIDE RECORDS SUMMARY | 2019-08-16 17:32 | XMS REPORT | Summary of Care ---
:1970 Author Organization [facility] Address [address] [place] [address] Care Team Providers Name Role Phone Ana Patino MD Primary Care Provider Reason for Visit Reason Comments High Blood Sugar X 3 weeks LAB WORK Encounter Details Date Type Department Care Team Description 03/25/2019 Office Visit [facility] Family Aspen Faulkner FNP Type 2 diabetes mellitus without complication, without long-term current use of insulin (Primary Dx); [address] Essential hypertension; [address] [place] [address] [address] Flank pain; [place], [place] [id number] Acute cystitis with hematuria [id number] [place], [place] [phone] [address] Allergies Active Allergy Reactions Severity Noted [...] 1 tablet by 6 tablet 0 03/25/2019 03/28/2019 Active (CIPRO) 250 mg mouth every 12 tabletIndications: (twelve) hours for Acute cystitis with 3 days. hematuria Hospital, Clinic, or Other Ordered Dose Route Frequency Start Date End Date Status Facility Administered Medication medroxyPROGESTERone 150 mg IM MONTHLY 03/10/2019 06/11/2019 Active (DEPO-PROVERA) injection 150 mg documented as of this encounter (statuses as of 03/25/2019) Active Problems Problem Noted Date Colon polyps 01/18/2019 Acid indigestion 01/08/2019 Overview: Added automatically from request for surgery [id number] Mammogram abnormal 12/24/2018 Overview: 12/24/18 - left [...] documented in this encounter Progress Notes Aspen Faulkner, SARAH - 03/25/2019 10:40 AM CDT Cc: Chief [...] Weight trend: Obesity, unchanged Prior visit with travel pta: No but referral made last visit Current [...] N/A 01/18/2019 Surgeon: Vikki Sarmiento MD; Location: [facility] OR Location ESOPHAGOGASTRODUODENOSCOPY N/A 01/18/2019 Surgeon: Vikki Sarmiento MD; Location: [facility] OR [facility] OTHER some hip and knee surgeries TUBAL [...] 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 Family History Problem Relation [...] to each visit. Continue care with the Alternative Energy Technician at least annually for diabetic eye exam. See the Physician Assistant Psychiatry for routine foot care and diabetic shoes if appropriate. A1C to be repeated in 3 months if still not at goal or improved at all with the current regimen. 2. Obesity, Nutritional counseling, Exercise counseling Continue care with cloth handler as referral was already made. Routine exercise [...] of the visit time. If applicable, the [facility] database was accessed to review any controlled substance prescription claims data. The [employer] prescription claims data in [employer] was reviewed to assess patient compliance with the medication treatment plan. lsy Hassan - 03/25/2019 10:40 AM CDTVenipuncture Collection performed by clean technique. Total of 1 attempts were made. Slight pressureand a bandage/ dressing were applied to the site(s). The patient experienced no complications. Specimens were sent processed to [facility] laboratories. documented in this encounter Plan of Treatment Date Type Specialty Care Team Description 04/07/2019 Nurse Visit Obstetrics & Gynecology Nurse, [facility] Women's Health 06/24/2019 Office Visit Family Medicine Ana Patino MD [address] [place] [address] [place] [id number] Name Type Priority Associated Diagnoses Date/Time MICROALBUMIN URINE LAB Routine Type 2 diabetes mellitus 03/25/2019 11:26 AM CDT without complication, without long-term current use of insulin URINE CULTURE LAB Routine Flank pain 03/25/2019 [...] Procedure Name Priority Date/Time Associated Comments Diagnosis URINALYSIS Routine 03/25/2019 11:26 Flank pain Results for this AM CDT procedure are in the results section. CBC WITH DIFFERENTIAL Routine 03/25/2019 11:23 Type [...] 11:23 Type 2 diabetes Results for this (75352)(TOTAL AM CDT mellitus without procedure are in CHOLESTEROL, complication, the results TRIGLYCERIDES, HDL) without long-term section. current use of insulin COMP. METABOLIC PANEL Routine 03/25/2019 11:23 Type 2 diabetes Results for this (45911) AM CDT mellitus without procedure are in complication, the results without long-term section. current use of insulin THYROID STIMULATING Routine 03/25/2019 11:23 Type 2 diabetes Results for this HORMONE AM CDT mellitus without procedure are in complication, the results without long-term section. current use of insulin documented in this encounter Results URINALYSIS (03/25/2019 11:26 AM CDT) APPEARANCE Clear Clear [facility] COLOR Yellow Yellow [facility] PH 5.0 4.8 - 8.0 [facility] SP GRAVITY 1.014 1.003 - 1.030 [facility] GLU U QUAL 500 mg/dL (A) Normal [facility] BLOOD Negative Negative [facility] KETONES 5 mg/dL (A) Negative [facility] PROTEIN Negative Negative [facility] UROBILIN Normal Normal [facility] BILIRUBIN Negative Negative [facility] NITRITE Negative Negative [facility] LEUK DONAVON Negative Negative [facility] RBC/HPF 1 0 - 3 HPF [facility] WBC/HPF 42 (H) 0 - 5 HPF [facility] BACTERIA Moderate (A) Negative [facility] MUCOUS Slight (A) Negative LPF [facility] SQ EPITH 1 HPF [facility] Specimen Urine - URINE, CLEAN CATCH Performing Organization Address City/State/Zipcode Phone Number [facility] CLIA: [id number], [address] [place] [address] CBC WITH DIFFERENTIAL (03/25/2019 11:23 AM CDT) WBC 7.53 4.30 - 11.10 [facility] 10*3/L [facility] RBC 4.52 3.93 - 5.25 [facility] 10*6/L [facility] HGB 11.5 (L) 11.6 - 15.0 [facility] g/dL [facility] HCT 34.9 (L) 35.7 - 45.2 % [facility] MCV 77.2 (L) 80.6 - 95.5 fL [facility] MCH 25.4 (L) 25.9 - 32.8 pg [facility] MCHC 33.0 31.6 - 35.1 [facility] g/dL [facility] RDW-SD 43.0 39.0 - 49.9 fL [facility] RDW-CV 15.4 12.0 - 15.5 % [facility] PLT 316 166 - 358 [facility] 10*3/L [facility] MPV 8.9 (L) 9.5 - 12.9 fL [facility] NRBC/100 WBC 0.0 0.0 - 10.0 /100 [facility] WBCs [facility] NRBC x10^3 <0.01 10*3/L [facility] GRAN MAT (NEUT) % 44.2 % [facility] IMM GRAN % 0.50 % [facility] LYMPH % 45.6 % [facility] MONO % 7.2 % [facility] EOS % 2.0 % [facility] BASO % 0.5 % [facility] GRAN MAT x10^3(ANC) 3.33 1.88 - 7.09 [facility] 10*3/uL [facility] IMM GRAN x10^3 0.04 0.00 - 0.06 [facility] 10*3/uL HOSPITAL LAB[facility]ATORY LYMPH x10^3 3.43 (H) 1.32 - 3.29 [facility] 10*3/uL HOSPITAL LAB[facility]ATORY MONO x10^3 0.54 0.33 - 0.92 [facility] 10*3/uL [facility] EOS x10^3 0.15 0.03 - 0.[address]/uL [facility] BASO x10^3 0.04 0.01 - 0.[address]/uL [facility] Specimen Blood - ARM, LEFT Performing Organization Address [facility] Phone Number [facility] CLIA: [id number], [address] [place] [address] LIPID PANEL ([id number])(TOTAL CHOLESTEROL, TRIGLYCERIDES, HDL) (03/25/2019 11:23 AM CDT) CHOL 203 (H) 120 - 200 mg/dL [facility] HDL 56 >50 mg/dL [facility] HDLC RATIO 3.6 <=4.5 [facility] TRIG 147 30 - 170 mg/dL [facility] LDL CHOL 118 <=160 mg/dL [facility] VLDL 29 5 - 60 mg/dL [facility] Specimen Blood - ARM, LEFT Performing Organization Address [facility] Phone Number [facility] CLIA: [id number], [address] [place] [address] [address] THYROID STIMULATING HORMONE (03/25/2019 11:23 AM CDT) TSH 1.83 0.45 - 4.70 mIU/L [facility] Specimen Blood - ARM, LEFT Performing Organization Address [facility] Phone Number [facility] CLIA: [id number], [address] [place] [address] [address] COMP. METABOLIC PANEL ([id number]) (03/25/2019 11:23 AM CDT) NA 141 135 - 145 [facility] mmol/L [facility] K 4.6 3.5 - 5.0 [facility] mmol/L [facility] CL 107 98 - 108 mmol/L [facility] CO2 TOTAL 20 (L) 23 - 31 mmol/L [facility] AGAP 14 2 - 16 [facility] BUN 10 7 - 23 mg/dL [facility] GLUCOSE 306 (H) 70 - 110 mg/dL [facility] CREATININE 0.59 0.50 - 1.04 [facility] mg/dL [facility] TOTAL BILI 0.4 0.1 - 1.1 mg/dL [facility] CALCIUM 9.4 8.6 - 10.6 [facility] mg/dL [facility] T PROTEIN 8.0 6.3 - 8.2 g/dL [facility] ALBUMIN 4.5 3.5 - 5.0 g/dL [facility] ALK PHOS 102 34 - 122 U/L [facility] ALT(SGPT) 20 9 - 51 U/L [facility] AST(SGOT) 24 13 - 40 U/L [facility] eGFR Calculation 107.9 mL/min/1.73m2 [facility] ([facility]ORATORY [place]an) eGFR Calculation 130.8 mL/min/1.73m2 [facility] ([facility]) [facility] Specimen Blood - ARM, LEFT Narrative Performed At Association of Glomerular Filtration Rate (GFR) [facility] and Staging of Kidney Disease* [...] tests). Performing Organization Address City/State/Zipcode Phone Number [facility] CLIA: [id number], [address] [place] [address] GLYCOSYLATED HEMOGLOBIN (A1C) (03/25/2019 11:23 AM CDT) HGB A1C 10.2 (H) 4.0 - 6.0 % NGSP [facility] Specimen Blood - ARM, LEFT Narrative Performed At %A1C (NGSP) Interpretation (ADA) [facility] 4.8-5.6 Normal or (Non-Diabetic Range) 5.7-6.4 Increased Risk (Pre-Diabetic) >6.5Diabetes Indicated Performing Organization Address City/[facility] Phone Number [facility] CLIA: [id number], [address] [place] [address] documented in this encounter Visit Diagnoses Diagnosis Type 2 diabetes mellitus without complication, without long-term current use of insulin - Primary Essential hypertension Unspecified essential hypertension Flank pain Abdominal pain, unspecified site Acute cystitis with hematuria Acute cystitis documented in this encounter Insurance Payer Benefit Plan Subscriber ID Effective Dates Phone Address Type / Group [facility] [id number] 2018-Prese [phone] [address] PPO/POS [facility] [id number] [place] [address] [phone] (Work) documented as of this encounter
--- OUTSIDE RECORDS SUMMARY | 2019-08-16 17:32 | XMS REPORT | Summary of Care ---
:1970 Author Organization [facility] Address [address] [place] [address] Care Team Providers Name Role Phone Ana Patino MD Primary Care Provider Reason for Visit Reason Comments Results Encounter Details Date Type Department Care Team Description 03/25/[address] [facility] Family Medicine Aspen Faulkner FNP Results - [place] [address] [facility] [address] [place] [address] [place] [phone] Allergies Active Allergy Reactions Severity Noted Date [...] 3 days. hematuria metFORMIN 500 mg Take 1 tablet by [...] Overview: Added automatically from request for surgery [id number] Mammogram abnormal 12/24/2018 Overview: 12/24/18 - left [...] 04/07/2019 Nurse Visit Obstetrics & Gynecology Nurse, [facility] Women's Health 06/24/2019 Office Visit Family Medicine Ana Patino MD [address] [place] [address] [place] [address] Health Maintenance Due Date Last Done Comments [...] Results Not on filedocumented in this encounter Insurance Payer Benefit Plan Subscriber ID Effective Dates Phone Address Type / Group [id number] 2018-Prese [phone] [address] PPO/POS [place] [id number] [place] [address] documented as of this encounter
[2019-08-16 18:37] LABS: Absolute Lymphocytes (CBC) 4.1 K/uL (0.7-4.9); Basophils % 0.5 % (0-1.3); Hematocrit 25.6 % (36.0-45.0); Lymphocytes % 44.6 % (15.3-44.8); MPV 6.9 fL (7.6-11.3); RBC Red Blood Cell Count 3.57 M/uL (3.86-4.86)
[2019-08-16 18:41] LABS: BUN Blood Urea Nitrogen 8 mg/dL (7-18); Bicarbonate 25 mmol/L (21-32); Glucose Level 170 mg/dL (74-106); Potassium 3.7 mmol/L (3.5-5.1); Sodium Level 137 mmol/L (136-145); Troponin (Emerg Dept Use Only) < 0.02 ng/mL (0.0-0.045)
--- NOTE | 2019-08-16 19:48 | ER ---
Nurse's Notes [facility] Name: Tiana Jorge Age: 49 yrs Sex: Female : 1970 Arrival Date: 08/16/2019 Time: 17:30 Bed 6 Private MD: Diagnosis: Iron deficiency anemia;Syncope and collapse Presentation: 08/16 17:37 Presenting complaint: Patient states: I have anemia, I passed out, I know I need a ch blood transfusion. I hit my side on a chair and woke up on the ground. Transition of care: patient was not received from another setting of care. Onset of symptoms was August 16, 2019 at 16:30. Risk Assessment: Do you want to hurt yourself or someone else? Patient reports no desire to harm self or others. Initial Sepsis Screen: Does the patient meet any 2 criteria? No. Patient's initial sepsis screen is negative. Does the patient have a suspected source of infection? No. Patient's initial sepsis screen is negative. 17:37 Method Of Arrival: Ambulatory 17:37 Acuity: YAHAIRA 3 ch 18:20 Care prior to arrival: None. ca1 Triage Assessment: 17:39 General: Appears in no apparent distress. comfortable, Behavior is calm, cooperative. ch Pain: Complains of pain in back. Neuro: Reports a syncopal episode. 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 - Coronavirus screen:: The patient has NOT traveled to [place], [place], or [place] in the past 14 days. The patient has NOT had contact with known/suspected case of Coronavirus?. - Social history:: Smoking status: Patient denies any tobacco usage or history of. - Ebola Screening: : Patient negative for fever greater than or equal to 101.5 degrees Fahrenheit, and additional compatible Ebola Virus Disease symptoms Patient denies exposure to infectious person Patient denies travel to an Ebola-affected area in the 21 days before illness onset No symptoms or risks identified at this time. Screenin:45 Abuse screen: Denies threats or abuse. Denies injuries from another. Nutritional ca1 screening: No deficits noted. Tuberculosis screening: No symptoms or risk factors identified. Fall Risk IV access (20 points). Assessment: 17:45 General: Appears in no apparent distress. comfortable, Behavior is calm, cooperative, ca1 appropriate for age. Pain: Complains of pain in right subscapular area and right mid back Pain currently is 7 out of 10 on a pain scale. Neuro: Level of Consciousness is awake, alert, obeys commands, Oriented to person, place, time, situation, Appropriate for age. Cardiovascular: Heart tones S1 S2 present Capillary refill < 3 seconds Patient's skin is warm and dry. Rhythm is sinus rhythm. Cardiovascular: Reports lightheadedness. Respiratory: Airway is patent Respiratory effort is even, unlabored, Respiratory pattern is regular, symmetrical. Respiratory: Breath sounds are clear bilaterally. GI: Abdomen is round non-distended, Bowel sounds present X 4 quads. Abd is soft and non tender X 4 quads. Abdomen is tender to palpation X 4 quads. : No signs and/or symptoms were reported regarding the genitourinary system. EENT: No signs and/or symptoms were reported regarding the EENT system. Derm: Skin is intact, is healthy with good turgor, Skin is pink, warm \T\ dry. Musculoskeletal: Circulation, motion, and sensation intact. Capillary refill < 3 seconds. 18:20 Reassessment: Patient appears in no apparent distress at this time. Patient is alert, ca1 oriented x 3, equal unlabored respirations, skin warm/dry/pink. 19:34 General: Appears in no apparent distress. Behavior is appropriate for age. Pain: Denies ea pain. Neuro: Level of Consciousness is awake, alert, obeys commands, Oriented to person, place, time, situation. Cardiovascular: Patient's skin is warm and dry. Respiratory: Airway is patent Respiratory effort is even, unlabored, Respiratory pattern is regular, symmetrical. Derm: Skin is pink, warm \T\ dry. Musculoskeletal: Circulation, motion, and sensation intact. 19:59 Reassessment: Patient and/or family updated on plan of care and expected duration. Pain ea level reassessed. Patient is alert, oriented x 3, equal unlabored respirations, skin warm/dry/pink. Discharge instruction given to patient, verbalized the understanding of instruction. Pt left ED ambulatory accompanied by family. Vital Signs: 17:39 BP 168 / 81; Pulse 92; Resp 16; Temp 98.4; Pulse Ox 100% on R/A; Weight 74.84 kg; ch Height 5 ft. 1 in. (154.94 cm); Pain 7/10; 18:20 BP 143 / 69; Pulse 93; Resp 19 S; Pulse Ox 100% on R/A; ca1 19:34 BP 117 / 60; Pulse 80; Resp 18; Pulse Ox 100% ; ea 17:39 Body Mass Index 31.18 (74.84 kg, 154.94 cm) ch 17:39 pain is in back ch ED Course: 17:30 Patient arrived in ED. as 17:38 Triage completed. ch 17:39 Arm band placed on left wrist. Patient placed in an exam room, on a stretcher. 17:40 Krish Echeverria FNP-C is [facility]. la1 17:40 Keo Kumar MD is Attending Physician. la1 17:43 Juli Elliott, DIMITRIOS is Primary Nurse. ca1 17:45 Patient has correct armband on for positive identification. Placed in gown. Bed in low ca1 position. Call light in reach. Side rails up X 1. patient monitor on. Pulse ox on. NIBP on. Warm blanket given. 18:04 No provider procedures requiring assistance completed. Initial lab(s) drawn, by mo, ca1 sent to lab. Inserted saline lock: 20 gauge in right antecubital area, using aseptic technique. Blood collected. 19:50 IV discontinued, intact, bleeding controlled, No redness/swelling at site. Pressure ea dressing applied. Administered Medications: No medications were administered Outcome: 19:47 Discharge ordered by . la1 19:59 Discharged to home ambulatory, with family. ea 19:59 Condition: stable 19:59 Discharge instructions given to patient, Instructed on discharge instructions, follow up and referral plans. Demonstrated understanding of instructions, follow-up care. 20:02 Patient left the ED. ea Signatures: Huong Aquino, RN RN Michelle Iqbal as Krish Echeverria FNP-C LUMP ROOM SUPERVISOR-Cla1 Candelaria Cano RN RN ea Acob, Cheryl, RN RN [facility]
--- NOTE | 2019-08-16 19:48 | EDPHYS ---
Physician Documentation [facility] Name: Tiana Jorge Age: 49 yrs Sex: Female : 1970 Arrival Date: 08/16/2019 Time: 17:30 Bed 6 Private MD: Keo Watson HPI: 08/16 18:29 This 49 yrs old Female presents to ER via Ambulatory with complaints of la1 Syncope. 18:29 The patient has experienced near-syncope, almost passed out, fell. Onset: The la1 symptoms/episode began/occurred just prior to arrival. Duration: This was a single episode. Context: occurred at home. Associated injury: The patient did not suffer any apparent associated injury. Current symptoms: Currently, the patient is not experiencing any symptoms. feels SOB on exertion for the last few weeks. Pt was recently told she was anemic and to go to the ER, went to [facility] but her level was 7.3 and they would not transfuse for that level, today was at home walking with laundry basket and had a near-syncopal/syncopal episode, states she got dizzy and fell but denies LOC.. 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 - Coronavirus screen:: The patient has NOT traveled to [place], [place], or [place] in the past 14 days. The patient has NOT had contact with known/suspected case of Coronavirus?. - Social history:: Smoking status: Patient denies any tobacco usage or history of. - Ebola Screening: : Patient negative for fever greater than or equal to 101.5 degrees Fahrenheit, and additional compatible Ebola Virus Disease symptoms Patient denies exposure to infectious person Patient denies travel to an Ebola-affected area in the 21 days before illness onset No symptoms or risks identified at this time. ROS: 18:37 Constitutional: Negative for fever, chills, and weight loss, Eyes: Negative for injury, la1 pain, redness, and discharge, ENT: Negative for injury, pain, and discharge, Neck: Negative for injury, pain, and swelling, Cardiovascular: Negative for chest pain, palpitations, and edema. 18:37 Abdomen/GI: Negative for abdominal pain, nausea, vomiting, diarrhea, and constipation, Back: Negative for injury and pain, : Negative for injury, bleeding, discharge, and swelling, MS/Extremity: Negative for injury and deformity, Neuro: Negative for headache, weakness, numbness, tingling, and seizure. 18:37 Respiratory: Positive for shortness of breath, on exertion. Exam: 18:38 Constitutional: This is a well developed, well nourished patient who is awake, alert, la1 and in no acute distress. Head/Face: Normocephalic, atraumatic. Eyes: Pupils equal round and reactive to light, extra-ocular motions intact. ENT: Mucous membranes moist. Neck: Trachea midline, Supple, full range of motion without nuchal rigidity, or vertebral point tenderness. No Meningismus. Chest/axilla: Normal chest wall appearance and motion. Nontender with no deformity. No lesions are appreciated. Cardiovascular: Regular rate and rhythm with a normal S1 and S2. No gallops, murmurs, or rubs. Normal PMI, no JVD. No pulse deficits. Respiratory: Lungs have equal breath sounds bilaterally, clear to auscultation Abdomen/GI: Soft, non-tender, with normal bowel sounds. No distension or tympany. No guarding or rebound. No evidence of tenderness throughout. Back: No spinal tenderness. No costovertebral tenderness. Full range of motion. Skin: Warm, dry with normal turgor. Pale with no rashes, no lesions, and no evidence of cellulitis. MS/ Extremity: Pulses equal, no cyanosis. Neurovascular intact. Full, normal range of motion. Neuro: Awake and alert, GCS 15, oriented to person, place, time, and situation. Cranial nerves II-XII grossly intact. Motor strength 5/5 in all extremities. Sensory grossly intact. Cerebellar exam normal. Normal gait. Vital Signs: 17:39 BP 168 / 81; Pulse 92; Resp 16; Temp 98.4; Pulse Ox 100% on R/A; Weight 74.84 kg; ch Height 5 ft. 1 in. (154.94 cm); Pain 7/10; 18:20 BP 143 / 69; Pulse 93; Resp 19 S; Pulse Ox 100% on R/A; ca1 19:34 BP 117 / 60; Pulse 80; Resp 18; Pulse Ox 100% ; ea 17:39 Body Mass Index 31.18 (74.84 kg, 154.94 cm) ch 17:39 pain is in back ch MDM: 17:40 Patient medically screened. la1 19:45 Differential Diagnosis: cardiac arrhythmia, vasovagal episode, aneamia. ECG was la1 reviewed by the Attending Physician. Data reviewed: vital signs, nurses notes, lab test result(s), EKG, radiologic studies, I have discussed the patient's presentation/case with the attending Emergency Department Physician; and as a result, I will discharge patient. Data interpreted: Pulse oximetry: on room air is 100 %. Interpretation: normal. Counseling: I had a detailed discussion with the patient and/or guardian regarding: the historical points, exam findings, and any diagnostic results supporting the discharge/admit diagnosis, lab results, radiology results, the need for outpatient follow up, a family practitioner, to return to the emergency department if symptoms worsen or persist or if there are any questions or concerns that arise at home. Special discussion: Based on the patient's Hx, exam, and Dx evaluation, there is no indication for emergent surgery or inpatient Tx. It is understood by the patient/guardian that if the Sx's persist or worsen they need to return immediately for re-evaluation. ED course: pt HGB has increased from 7.3 to 8.1, pt without dyspnea at rest. Given anemia precautions and FU instructions, pt verbalized understanding, no focal neurological deficits. . 08/16 17:58 Order name: Basic Metabolic Panel la08/16 17:58 Order name: CBC with Diff 08/16 17:58 Order name: Troponin (emerg Dept Use Only) la08/16 17:58 Order name: Type And Screen la08/16 18:42 Order name: Basic Metabolic Panel; Complete Time: 19:14 EDMS 08/16 18:42 Order name: Troponin (Emerg Dept Use Only); Complete Time: 19:14 EDMS 08/16 17:58 Order name: EKG; Complete Time: 17:59 la08/16 17:58 Order name: Cardiac monitoring; Complete Time: 17:58 la1 08/16 17:58 Order name: EKG - Nurse/Tech; Complete Time: 18:08 la08/16 17:58 Order name: IV Saline Lock; Complete Time: 18:08 la08/16 17:58 Order name: Labs collected and sent; Complete Time: 18:08 la08/16 17:58 Order name: O2 Per Protocol; Complete Time: 18:08 la1 08/16 18:43 Order name: CBC with Automated Diff; Complete Time: 19:14 EDIN 08/16 19:07 Order name: Type and Screen; Complete Time: 19:14 EDMS 08/16 17:58 Order name: O2 Sat Monitoring; Complete Time: 18:08 la EC:33 Rate is 91 beats/min. Rhythm is regular, Normal Sinus Rhythm with No ectopy. QRS [place] kdr is Normal. DE interval is normal. QRS interval is normal. QT interval is normal. Clinical impression: Normal ECG. Administered Medications: No medications were administered Disposition: 08/17 07:04 Co-signature as Attending Physician, Keo Kumar MD I agree with the assessment and roby plan of care. Disposition: 08/16/19 19:47 Discharged to Home. Impression: Iron deficiency anemia, Syncope and collapse. - Condition is Stable. - Discharge Instructions: Iron Deficiency Anemia, Adult, Near-Syncope, Syncope, Iron Deficiency Anemia, Adult, [id number]. - Medication Reconciliation Form, Thank You Letter form. - Follow up: Private Physician; When: 2 - 3 days; Reason: Recheck today's complaints, Re-evaluation by your physician. - Problem is new. - Symptoms have improved. Signatures: Dispatcher [employer] EDHuong Toledo, RN Keo Mendosa ch, MD MD cha Rittger, Kevin, MD MD kdr Attema, Lee, CERAMIC WORKER-C CERAMIC WORKER-Cla1 Candelaria Cano, RN RN ea Corrections: (The following items were deleted from the chart) 08/16 20:02 19:47 08/16/2019 19:47 Discharged to Home. Impression: Iron deficiency anemia; Syncope ea and collapse. Condition is Stable. Forms are Medication Reconciliation Form, Thank You Letter, Antibiotic Education, Prescription Opioid Use. Follow up: Private Physician; When: 2 - 3 days; Reason: Recheck today's complaints, Re-evaluation by your physician. Problem is new. Symptoms have improved. la1
[2019-08-16 20:25] VITALS: O2SAT 100
[2019-08-16 20:27] VITALS: TEMP 98.4
[2019-08-16 20:28] VITALS: BP 117/60
--- NOTE | 2019-08-17 06:34 | EKG ---
Test Date: 2019-08-16 Test Time: 17:48:36 Press Set Up: FRANCK MEASUREMENT RESULTS: Intervals: Rate: 91 OK: 134 QRSD: 74 QT: 370 QTc: 455 [place]: P: 48 OK: 134 QRS: 23 T: 42 INTERPRETIVE STATEMENTS: Normal sinus rhythm Normal ECG Compared to ECG 08/24/2016 02:52:09 No significant changes Electronically Signed On 08-17-19 06:33:32 LAMINATING MACHINE OFFBEARER by Yony Steele
== END 2019-08-16 20:02 | disposition home or self-care (01) ==
LOC: ER 17:28
DX: D50.9 Iron deficiency anemia, unspecified (principal); I10 Essential (primary) hypertension; Z88.5 Allergy status to narcotic agent
CPT/HCPCS: 36415; 80048; 84484; 85025; 86850; 86900; 86901; 93005; 99284

== ENCOUNTER 2023-01-19 08:51 | Emergency (ER) | payer BC ==
--- OUTSIDE RECORDS SUMMARY | 2023-01-19 08:55 | XMS REPORT | Continuity of Care Document ---
:1970 Author Organization [facility] t Address [address] [facility] [place] [address] Care Team Providers Name Role Phone Ana Kennedy MD Primary Care Physician [phone] Doctor Unassigned, [place] Attending Clinician Unavailable Bibi Horton Attending Clinician ALEXANDRE HOWELL Attending Clinician Unavailable Ebrahim GEAR SHAPER SET UP OPERATORAlexandre Attending Clinician Omaghomi GEAR SHAPER SET UP OPERATOR, Omayemi Attending Clinician OMSOFÍA SHERWOODAYJONATANI Attending Clinician Unavailable Lakeisha Shea Attending Clinician Vaccine, [facility] Attending Clinician Unavailable Matthew De Luna DO Attending Clinician MATTHEW DE LUNA Attending Clinician Unavailable BIBI JACOB Attending Clinician Unavailable Ana Kennedy MD Attending Clinician Shelby Babcock MD Attending Clinician SHELBY BABCOCK Attending Clinician Unavailable ANA KENNEDY Attending Clinician Unavailable Lab, [facility] Attending Clinician Unavailable TIANNA GUIDRY Attending Clinician Unavailable LIUDMILA REA Attending Clinician Unavailable LIUDMILA REA Attending Clinician Unavailable Jenny Toledo DO Attending Clinician Aspen Ogden Attending Clinician 2, [facility] Attending Clinician Unavailable Liudmila Rea MD Attending Clinician Payers Payer Name Policy Type Policy Number Effective Date Expiration Date S ource Problems Condition Condition Condition Status Onset Resolution Last Treating Co mments Source Name Details Category Date Date Treatment Clinician Date B12 B12 Disease Active Univers deficiency deficiency 1-19 it y of 00:00: Medical Branch Iron Iron Disease Active Univers deficiency deficiency -19 it y of anemia due [place] chronic to chronic 00 Me dical blood loss blood loss Br anch Colon Colon Disease Active Univers polyps polyps 01-18 ity of 00:00: Medical Branch Acid Acid Disease Active Overview: Univer s indigestio indigestio 01-08 Formattin ity of n n 00:00: g of this note Medical might be Branch different from the original. Added automatic ally from request for surgery [id number] Mammogram Mammogram Disease Active Overview: Univers abnormal abnormal 12-24 Formattin ity of 00:00: g of this note Medical might be Branch different from the original. 12/24/18 - left breast normal. Right breast focal asymmetry in right upper outer breast. 12/30/18- Right breast ultrasoun d revealed localized dense breast tissue with 2 small cystic lesions noted at 11 and 12 o'clock. Category II. Annual b/l mammogram recommend ed. Hepatomega Hepatomega Disease Active U nivers ly ly 12-20 ity of 00:00: Medical Branch Anemia due Anemia due Disease Active U nivers to chronic to chronic 12-16 it y of blood [place] Menorrhagi Menorrhagi Disease Active Overview : Univers a with a with 12-16 Formattin ity of irregular irregular 00:00: [place] of this [place] cycle cycle 00 note Medical might be Branch different from the original. 12/30/18 - EMB benign. DepoProve ra started. Hematochez Hematochez Disease Active U nivers ia ia 6- ity of 00:00: [place] [facility] Left Left Disease Active Univers ovarian ovarian 12-16 ity of cyst cyst 00:00: Medical Branch Intramural Intramural Disease Active Overview : Univers leiomyoma leiomyoma 12-16 Formattin i ty of of uterus of uterus 00:00: [place] of [place] 00 note Medical might be Branch different from the original. 12/24/18 - Pelvic US revealed a moderatel y enlarged uterus, measuring 12.7 x 7.4 x 8.6 cm with a large 5.5 x 4 cm size fibroid in the left side of uterus which is slightlyd istorting and pushing the endometri al lining. Endometri al echo complex is 12.3 mm. Right ovary measures 3.6 x 2.4 x 2.0 cm and left ovary measures 4.4 x 2.2 x 1.5 cm. Previousl y visualize d left ovarian cyst in the CT scan of 11/26/2018 has decreased in size and it is measuring approxima tely 16 mm at this time. 24 mm cyst also noted in the right ovary containin g thick fluid. Small bilateral ovarian cysts, likely physiolog ic. Atypical Atypical Disease Active Unive rs chest pain chest pain 5-16 it y of 00:00: [place] 00 Medical Branch Obesity Obesity Disease Active Univers (BMI (BMI 5-16 ity of 30-39.9) 30-39.9) 00:00: [place] 00 Medical Branch Type 2 Type 2 Disease Active Univers diabetes diabetes 5-16 ity of mellitus mellitus 00:00: [place] without without 00 Medical complicati complicati Br anch on on GAN GAN Disease Active Univers (dyspnea (dyspnea 5-16 ity of on on 00:00: [place] exertion) exertion) 00 [facility] Branch Dyslipidem Dyslipidem Disease Active U nivers ia ia 5-16 ity of 00:00: [place] 00 Medical Branch Family Family Disease Active Univers history of history of 5-16 it y of premature premature 00:00[place] CAD CAD 00 Medical Branch Essential Essential Disease Active Uni vers hypertensi hypertensi it y of on on [place] [facility] Allergies, Adverse Reactions, Alerts Allergy Allergy Status Severity Reaction(s) Onset Inactive Treating Comm ents Source Name Type Date Date Clinician Morphine Propensi Active Nausea Univer s ty to and/or 2-09 ity of adverse Vomiting 00:00: [place] reaction 00 Medical s Branch MORPHINE DRUG Active N/V Univers INGREDI 2-09 ity of 00:00: [address] Social History Social Habit Start Date Stop Date Quantity Comments Source Exposure to 2021-12-18 2021-12-28 [facility]00 [facility] (event) Branch Alcohol intake 2021-12-19 2021-12-19 Current University 00:00:00 00:00:00 non-drinker of [facility] alcohol (finding) [place] Tobacco use and 2018-11-26 2018-11-26 Smokeless tobacco Un iversity of exposure 00:00:00 00:00:00 non-user [facility] Sex Ass[birth year] At [birth year] Universit y of 00:00:00 00:00:00 [facility] Smoking Status Start Date Stop Date Source Never smoked tobacco [facility] Medications Ordered Filled Start Stop Current Ordering Indication Dosage Frequency Signature Comments Components Source Medication Medication Date Date Medication? Clinician (SIG) Name Name ondansetron 2021- No [id number] 4mg Univers (ZOFRAN-ODT 12-28 ity of ) 19:00: 17:55 [place] disintegrat 00 :00 Medical ing tablet Branch 4 mg ondansetron 2021- No [id number] 4mg 4 mg, Univers (ZOFRAN-ODT 12-28 Oral, ity of ) 19:00: 17:55 ONCE, 1 [place] disintegrat 00 :00 dose, On Medi asia ing tablet Fri Branch 4 mg 12/28/21 at 1400, Routine ondansetron 2021- No [id number] 4mg Take 1 Univers 4 mg 12-28 tablet by ity of disintegrat 00:00: 04:59 [place] ing tablet 00 :00 every 8 Medica l (eight) Branch hours as needed for Nausea and Vomiting (N/V) for up to 5 days. albuterol Yes [id number] 2{puff} Inhale 2 Univers 90 6-08 Puffs ity of mcg/actuati 00:00: every 6 Sammy as on inhaler 00 (six) Medical hours as Branch needed for Shortness of Breath. methylPREDN Yes [id number] Take by Univers ISolone 6-08 mouth ity of (MEDROL, 00:00: SEE-INSTRU Sammy as LUKASZ,) 4 mg 00 CTIONS. Medica l tablets follow Branch package directions albuterol 2021-0 Yes [id number] 2{puff} Inhale 2 Univers 90 6-08 Puffs ity of mcg/actuati 00:00: every 6 Sammy as on inhaler 00 (six) Medical hours as Branch needed for Shortness of Breath. methylPREDN 2021-0 Yes [id number] Take by Univers ISolone 6-08 mouth ity of (MEDROL, 00:00: SEE-INSTRU Sammy as LUKASZ,) 4 mg 00 CTIONS. Medica l tablets follow Branch package directions albuterol 2021-0 Yes [id number] 2{puff} Inhale 2 Univers 90 6-08 Puffs ity of mcg/actuati 00:00: every 6 Sammy as on inhaler 00 (six) Medical hours as Branch needed for Shortness of Breath. methylPREDN 2021-0 Yes [id number] Take by Univers ISolone 6-08 mouth ity of (MEDROL, 00:00: SEE-INSTRU Sammy as LUKASZ,) 4 mg 00 CTIONS. Medica l tablets follow Branch package directions albuterol 2021-0 Yes [id number] 2{puff} Inhale 2 Univers 90 6-08 Puffs ity of mcg/actuati 00:00: every 6 Sammy as on inhaler 00 (six) Medical hours as Branch needed for Shortness of Breath. methylPREDN 2021-0 Yes [id number] Take by Univers ISolone 6-08 mouth ity of (MEDROL, 00:00: SEE-INSTRU Sammy as LUKASZ,) 4 mg 00 CTIONS. Medica l tablets follow Branch package directions albuterol 2021-0 Yes [id number] 2{puff} Inhale 2 Univers 90 6-08 Puffs ity of mcg/actuati 00:00: every 6 Sammy as on inhaler 00 (six) Medical hours as Branch needed for Shortness of Breath. methylPREDN 2021-0 Yes [id number] Take by Univers ISolone 6-08 mouth ity of (MEDROL, 00:00: SEE-INSTRU Sammy as LUKASZ,) 4 mg 00 CTIONS. Medica l tablets follow Branch package directions bromphenira 2021-0 2021- No [id number] 5mL Take 5 mL Univers mine-pseudo 12-19 by mouth 4 i ty of ephedrine-D 00:00: 04:59 (four) [place] as M (BROMFED 00 :00 times Medical DM) 2-30-10 daily as Bran ch mg/5 mL needed for syrup Cold symptoms for up to 10 days. bromphenira 2021- No [id number] 5mL Take 5 mL Univers mine-pseudo 12-19 by mouth 4 i ty of ephedrine-D 00:00: 04:59 (four) [place] as M (BROMFED 00 :00 times Medical DM) 2-30-10 daily as Bran ch mg/5 mL needed for syrup Cold symptoms for up to 10 days. bromphenira 2021- No [id number] 5mL Take 5 mL Univers mine-pseudo 12-19 by mouth 4 i ty of ephedrine-D 00:00: 04:59 (four) [place] as M (BROMFED 00 :00 times Medical DM) 2-30-10 daily as Bran ch mg/5 mL needed for syrup Cold symptoms for up to 10 days. polymyxin B 2021- No [id number] 1[drp] Place 1 Univers sulf-trimet 12-1916 Drop in ity of hoprim 00:00: 04:59 right eye [place] 10,000 00 :00 every 6 Medical unit- 1 (six) Branch mg/mL hours for ophthalmic 7 days. drops azelastine 2020-07 Yes [id number] 1{spray Use 1 Univers 137 mcg 2-22 } [place] in ity of (0.1 %) 00:00: each [place] nasal spray 00 nostril 2 Med ical (two) Branch times daily. Use in each nostril as directed azelastine 2020-07 Yes [id number] 1{spray Use 1 Univers 137 mcg 2-22 } [place] in ity of (0.1 %) 00:00: each [place] nasal spray 00 nostril 2 Med ical (two) Branch times daily. Use in each nostril as directed azelastine 2020-07 Yes [id number] 1{spray Use 1 Univers 137 mcg 2-22 } [place] ity of (0.1 %) 00:00: each [place] nasal spray 00 nostril 2 Med ical (two) Branch times daily. Use in each nostril as directed azelastine 2020-07 Yes [id number] 1{spray Use 1 Univers 137 mcg 2-22 } [place] in ity of (0.1 %) 00:00: each [place] nasal spray 00 nostril 2 Med ical (two) Branch times daily. Use in each nostril as directed azelastine 2020-07 Yes [id number] 1{spray Use 1 Univers 137 mcg 2-22 } [place] ity of (0.1 %) 00:00: each [place] nasal spray 00 nostril 2 Med ical (two) Branch times daily. Use in each nostril as directed blood sugar 2020-07 Yes [id number] CHECK Univers diagnostic 1-02 GLUCOSE ity of (ONETOUCH 00:00: TWO TIMES Sammy as ULTRA TEST) 00 A DAY; Medica l strip ICD-10 Branch E11.9 blood sugar 2020-07 Yes [id number] CHECK Univers diagnostic 1-02 GLUCOSE ity of (ONETOUCH 00:00: TWO TIMES Sammy as ULTRA TEST) 00 A DAY; Medica l strip ICD-10 Branch E11.9 blood sugar 2020-07 Yes [id number] CHECK Univers diagnostic 1-02 GLUCOSE ity of (ONETOUCH 00:00: TWO TIMES Sammy as ULTRA TEST) 00 A DAY; Medica l strip ICD-10 Branch E11.9 blood sugar 2020-07 Yes [id number] CHECK Univers diagnostic 1-02 GLUCOSE ity of (ONETOUCH 00:00: TWO TIMES Sammy as ULTRA TEST) 00 A DAY; Medica l strip ICD-10 Branch E11.9 blood sugar 2020-07 Yes [id number] CHECK Univers diagnostic 1-02 GLUCOSE ity of (ONETOUCH 00:00: TWO TIMES Sammy as ULTRA TEST) 00 A DAY; Medica l strip ICD-10 Branch E11.9 OZEMPIC 1 Yes Univers mg/dose (4 6-18 ity of mg/3 mL) 00:00: [place] PnIj 00 Medical Branch OZEMPIC 1 Yes Univers mg/dose (4 6-18 ity of mg/3 mL) 00:00: [place] PnIj Medical Branch OZEMPIC 1 Yes Univers mg/dose (4 6-18 ity of mg/3 mL) 00:00: [place] PnIj 00 Medical Branch OZEMPIC 1 2020-0 Yes Univers mg/dose (4 6-18 ity of mg/3 mL) 00:00: [place] PnIj 00 Medical Branch OZEMPIC 1 2020-0 Yes Univers mg/dose (4 6-18 ity of mg/3 mL) 00:00: [place] PnIj 00 Medical Branch rosuvastati 2020-0 Yes [id number] 5mg Take 1 Univers n 5 mg 7-13 tablet by ity of tablet 00:00: mouth [place] 00 daily. Medical Branch lisinopril 2020-0 Yes [id number] 10mg Take 1 U nivers 10 mg 7-13 tablet by ity of tablet 00:00: mouth [place] 00 daily. Medical Branch rosuvastati 2020-0 Yes [id number] 5mg Take 1 Univers n 5 mg 7-13 tablet by ity of tablet 00:00: mouth [place] 00 daily. Medical Branch lisinopril 2020-0 Yes [id number] 10mg Take 1 U nivers 10 mg 7-13 tablet by ity of tablet 00:00: mouth [place] 00 daily. Medical Branch rosuvastati 2020-0 Yes [id number] 5mg Take 1 Univers n 5 mg 7-13 tablet by ity of tablet 00:00: mouth [place] 00 daily. Medical Branch lisinopril 2020-0 Yes [id number] 10mg Take 1 U nivers 10 mg 7-13 tablet by ity of tablet 00:00: mouth [place] 00 daily. Medical Branch rosuvastati 2020-0 Yes [id number] 5mg Take 1 Univers n 5 mg 7-13 tablet by ity of tablet 00:00: mouth [place] 00 daily. Medical Branch lisinopril 2020-0 Yes [id number] 10mg Take 1 U nivers 10 mg 7-13 tablet by ity of tablet 00:00: mouth [place] 00 daily. Medical Branch rosuvastati 2020-0 Yes [id number] 5mg Take 1 Univers n 5 mg 7-13 tablet by ity of tablet 00:00: mouth [place] 00 daily. Medical Branch lisinopril 2020-0 Yes [id number] 10mg Take 1 U nivers 10 mg 7-13 tablet by ity of tablet 00:00: mouth [place] 00 daily. Medical Branch Immunizations Ordered Filled Immunization Date Status Comments [facility] e Immunization Name Name SARS-COV-2 COVID-19 2021-10-11 Completed Unive rsity of PFIZER [place]-SUCROSE 00:00:00 [place] Medical VACCINE ( TOP) Branch SARS-COV-2 COVID-19 2021-10-11 Completed Unive rsity of PFIZER [place]-SUCROSE 00:00:00 [place] Medical VACCINE ( TOP) Branch SARS-COV-2 COVID-19 2021-10-11 Completed Unive rsity of PFIZER [place]-SUCROSE 00:00:00 [place] Medical VACCINE ( TOP) Branch SARS-COV-2 COVID-19 2021-10-11 Completed Unive rsity of PFIZER [place]-SUCROSE 00:00:00 [place] Medical VACCINE ( TOP) Branch SARS-COV-2 COVID-19 2021-10-11 Completed Unive rsity of PFIZER [place]-SUCROSE 00:00:00 [place] Medical VACCINE ( TOP) Branch SARS-COV-2 COVID-19 2021-09-20 Completed Unive rsity of PFIZER [place]-SUCROSE 00:00:00 [place] Medical VACCINE ( TOP) Branch SARS-COV-2 COVID-19 2021-09-20 Completed Unive rsity of PFIZER [place]-SUCROSE 00:00:00 [place] Medical VACCINE ( TOP) Branch SARS-COV-2 COVID-19 2021-09-20 Completed Unive rsity of PFIZER [place]-SUCROSE 00:00:00 [place] Medical VACCINE ( TOP) Branch SARS-COV-2 COVID-19 2021-09-20 Completed Unive rsity of PFIZER [place]-SUCROSE 00:00:00 [place] Medical VACCINE ( TOP) Branch SARS-COV-2 COVID-19 2021-09-20 Completed Unive rsity of PFIZER [place]-SUCROSE 00:00:00 [place] Medical VACCINE ( TOP) Branch Vital Signs Vital Name Observation Time Observation Value Comments Source Systolic blood 2021-12-28 17:40:00 186 mm[Hg] Univer sity of pressure [facility] Diastolic blood 2021-12-28 17:40:00 93 mm[Hg] Unive rsity of pressure [facility] Heart rate 2021-12-28 17:37:00 66 [facility] Body temperature 2021-12-28 17:37:00 36.17 Lorene Univ ersity of [facility] Respiratory rate 2021-12-28 17:37:00 18 /min Univ ersity [facility] [place] Body height 2021-12-28 17:37:00 154.9 cm Universi ty of [facility] Body weight 2021-12-28 17:37:00 76.703 kg Universi ty [facility] [place] BMI 2021-12-28 17:37:00 31.95 kg/m2 [facility] [place] Oxygen saturation in 2021-12-28 17:37:00 100 /min [facility] Arterial blood by [facility] Pulse oximetry [place] Procedures Procedure Date / Time Performed Performing Clinician [facility] e EXTERNAL PROVIDER 2022-06-25 06:01:00 Doctor Unassigned, No [facility] Medical [place] EXTERNAL PROVIDER 2021-12-27 05:01:00 Doctor Unassigned, No Univ [facility] RECORDS Name [facility] Encounters Start End Encounter Admission Attending Care Care Encounter Source Date/Time Date/Time Type Type Clinicians Facility Department ID 2022-06-25 2022-06-25 Orders Doctor CARRILLO [id number] Univers 00:00:00 00:00:00 Only Unassigned, YOUNG [id number] ity of [place] [facility] [id number] Sammy as [id number] [place] [address] Branch 2022-06-03 2022-06-03 Telephone Nidia [facility] [id number] Univers 00:00:00 00:00:00 Bibi A HEALTH [id number] i ty of [place] [id number] Sammy as KAIN?BLEA [id number] Ct siddharth TERRY [address] [place] [address] MEDICAL OFFICE BUILDING 2021-12-28 2021-12-28 Outpatient R GIOVANNY [facility] [id number] Univers 12:40:00 13:52:08 ALEXANDRE ity of [facility] 2021-12-28 2021-12-28 Urgent Giovanny [facility] [id number] Univers 12:40:00 13:52:08 Care Alexandre [facility] [id number] it y of [place] [id number] Sammy as KAIN?BLEA [phone] Ct siddharth CACERES [address] [place] MEDICAL OFFICE BUILDING 2021-12-27 2021-12-27 Orders Doctor LORENA [id number] Univers 00:00:00 00:00:00 Only Unassigned, YOUNG [id number] ity of [place] [facility] [id number] Sammy as [id number] [address] 2021-12-20 2021-12-20 Telephone [facility] [id number] Univers 00:00:00 00:00:00 [facility] [employer] [id number] it y of [place] [id number] Sammy as KAIN?BLEA [phone] [address] OFFICE [facility] 2021-12-19 2021-12-19 Outpatient R [facility] [id number] Univers 10:31:22 23:59:00 [facility] of [facility] 2021-12-19 2021-12-19 [facility] [id number] Univers 10:31:22 23:59:00 Encounter [facility] [employer] [id number] ity of [place] 4.2.7.2.686 Sammy as KAIN?BLEA [id number] Ct dical [place] [address] [place] MEDICAL OFFICE [facility] 2021-12-19 2021-12-19 Urgent [facility] 1.2.840. [id number] Univers 10:20:00 10:41:23 Care [facility] [id number] ity of [place] [id number] Sammy as KAIN?BLEA [id number] Ct dical [place] [address] [place] MEDICAL OFFICE [facility] 2021-12-19 2021-12-19 Telephone [facility] [id number] Univers 00:00:00 00:00:00 [facility] [employer] [id number] it y of [place] [id number] Sammy as KAIN?BLEA [id number] Ct dical KNEY 370 [facility] OFFICE [facility] 2021-11-17 2021-11-17 Outpatient R [facility] [id number] Univers 09:00:00 09:00[facility] 2021-10-11 2021-10-11 Imm/Inj Vaccine, [facility] [id number] Univers 13:00:00 13:22:35 Visit Matthew De Luna 350.1.13 .10 ity [facility] 4.2.7.2.686 [place] PROF[place] [phone] Ct siddharth NAL 044 [facility] 2021-10-11 2021-10-11 Outpatient R CALIXTO [facility] [id number] Univers 13:00:00 13:00:00 [facility] 2021-09-20 2021-09-20 Outpatient R [facility] [id number] Univers 15:30:00 15:30:00 [facility] 2021-09-20 2021-09-20 Imm/Inj Vaccine, [facility] [id number] Univers 15:30:00 15:30:00 Visit Matthew De Luna 350.1.13 .10 ity [facility] 4.2.7.2.686 [place] PROFESS[place] [id number] Ct siddharth NAL [address] [place] [address] 2021-07-31 2021-07-31 [facility] [id number] Univers 00:00:00 00:00:00 Bibi Francisco [facility] [id number] i ty of [place] 4.2.7.2.686 Sammy as KAIN?BLEA [id number] [facility] MORRIS 044 [facility] OFFICE [facility] 2021-07-04 2021-07-04 Outpatient R NIDIA [facility] [id number] Univers 14:00:00 14:25:57 BIBI viera [facility] [place] 2021-07-04 2021-07-04 [facility] [id number] Univers 14:00:00 14:25:57 Visit Bibi LYON 350.1.13.10 i ty of [place] 4.2.7.2.686 Sammy as KAIN?BLEA [id number] Ct dickatherine TERRY 044 [facility] OFFICE [facility] 2021-07-04 2021-07-04 Outpatient R NIDIA [facility] [id number] Univers 14:00:00 14:25:57 BIBI viera [facility] [place] 2021-05-14 2021-05-14 [facility] [id number] Univers 00:00:00 00:00:00 Wondiful A [place] 350.1.13.10 ity of [place] 4.2.7.2.686 [place] PROFESSIO [id number] Ct siddharth ANGUIANO 044 [facility] 2021-03-06 2021-03-06 Office [facility] [id number] Univers 13:22:49 14:29:40 Visit Shelby [place] 350.1.13.10 i ty of [place] 4.2.7.2.686 [place] Professio [id number] Ct dickatherine nal 419 [facility] 2021-03-06 2021-03-06 [facility] [id number] Univers 13:30:00 13:30:00 SHELBY aylin of [facility] 2021-02-27 2021-02-27 [facility] [id number] Univers 12:39:20 23:59:00 Encounter Wondiful A [place] 350.1.13.10 ity of [place] 4.2.7.2.686 [place] [id number] [facility] 806 [place] 2021-02-27 2021-02-27 [facility] [id number] Univers 12:30:00 12:38:00 Encounter Wondiful A [place] 350.1.13.10 ity of [place] 4.2.7.2.686 [place] [id number] [facility] 800 [place] 2021-02-27 2021-02-27 Outpatient R CAREY [facility] [id number] Univers 00:00:00 00:00:00 WONDIFUL ity o f [facility] 2021-02-27 2021-02-27 Orders Doctor LORENA [id number] Univers 00:00:00 00:00:00 Only Unassigned, YOUNG 350.1.13.10 ity of [place] [facility] 4.2.7.2.686 Sammy as [id number] [address] 2021-01-23 2021-01-23 [facility] [id number] Univers 13:15:00 13:15:00 WONDIFUL ity o f [facility] 2021-01-02 2021-01-02 [facility], Ethan Fam Pob I [facility] 1.2. [id number] Univers 11:46:36 12:06:36 Visit Creek[facility]a [facility] 350.1.13.1 0 ity of [place] 4.2.7.2.686 Sammy as Professio [phone] Ct dic[address] Office [facility] One 2021-01-02 2021-01-02 Office [facility] [id number] Univers 11:05:25 11:46:17 Visit Wondiful A Health 350.1.13.10 ity of [place] 4.2.7.2.686 Sammy as Professio [id number] [address] Office Building One 2021-01-02 2021-01-02 Outpatient R CAREY [facility] [id number] Univers 11:00:00 11:00:00 WONDIFUL ity o f [facility] 2021-01-02 2021-01-02 Telephone [facility] 1..840.114 [id number] Univers 00:00:00 00:00:00 Wondiful A Health 350.1.13.10 ity of [place] 4.2.7.2.686 Sammy as Professio [id number] Ct dic[address] Office Building One 2020-12-01 2020-12-01 Outpatient R CAREY [facility] [id number] Univers 15:00:00 15:00:00 WONDIFUL ity o f [facility] 2020-11-03 2020-11-03 Outpatient R CAREY, [facility] [id number] Univers 11:00:00 11:00:00 WONDIFUL ity o f [facility] 2020-10-20 2020-10-20 Telephone [facility] [id number] Univers 00:00:00 00:00:00 Wondiful A Health 350.1.13.10 ity of [place] [id number] Sammy as Professio [phone] [place] [address] Branch Office Building One 2020-09-26 2020-09-26 Patient Calixto [facility] 1.2.840.114 [id number] Univers 00:00:00 00:00:00 Outreach Matthew PRIMARY [id number] i ty of [facility] [id number] [phone] Ct dical [address] [place] [address] 2020-08-24 2020-08-24 Outpatient R [facility] [id number] Univers 10:30:00 10:30:00 WONDIFUL ity o f [facility] 2020-08-22 2020-08-22 Outpatient R [facility] [id number] Univers 13:15:00 13:15:00 WONDIFUL ity o f [facility] 2020-08-02 2020-08-02 Outpatient R [facility] [id number] Univers 14:00:00 14:00:00 WONDIFUL ity o f [facility] 2020-07-27 2020-07-27 Outpatient R [facility] [id number] Univers 08:45:00 08:45:00 WONDIFUL ity o f [facility] 2020-02-22 2020-02-22 Outpatient R [facility] [id number] Univers 13:15:00 13:15:00 SHELBY ity of [facility] 2020-02-15 2020-02-15 [facility] [id number] Univers 08:55:43 23:59:00 Encounter Wondiful A [place] [id number] ity of [place] [id number] [facility] [phone] [facility] [address] 2020-02-15 2020-02-15 [facility] [id number] Univers 08:30:00 08:54:00 Encounter Wondiful A [place] [id number] ity of [place] [id number] [facility] [phone] [facility] [address] 2020-02-15 2020-02-15 [facility] [id number] Univers 00:00:00 00:00:00 WONDIFUL ity o f [facility] 2020-02-15 2020-02-15 Orders Doctor LORENA 1.2.840.114 [id number] Univers 00:00:00 00:00:00 Only Unassigned, YOUNG [id number] ity of [place] [facility] [phone] [facility] [address] 2020-01-27 2020-01-27 [facility] [id number] Univers 09:00:00 09:00:00 WONDIFUL ity o f [facility] 2020-01-25 2020-01-25 [facility] [id number] Univers 15:46:02 17:17:41 Visit Shelby Sanders [id number] i ty of [place] [id number] [facility] Professio [phone] Ct dical [address] 2020-01-25 2020-01-25 [facility] [id number] Univers 16:00:00 16:00:00 SHELBY ity of [facility] 2020-01-24 2020-01-24 Office [facility] 1.2.840.114 [id number] Univers 09:49:24 10:34:11 Visit Wondiful A [place] [id number] [id number] [phone] [address] 2020-01-24 2020-01-24 Outpatient R [facility] [id number] Univers 09:30:00 09:30:00 WONDIFUL ity o f [facility] 2019-10-28 2019-10-28 Telephone [facility] [id number] Univers 00:00:00 00:00:00 [place]ondiful A [place] [id number] [id number] [phone] [address] 2019-10-28 2019-10-28 Orders Doctor LORENA 1.2.840.114 [id number] Univers 00:00:00 00:00:00 Only Unassigned, YOUNG [id number] ity of [place] [facility] 4.2.7.2.686 Sammy as [phone] [address] 2019-10-05 2019-10-05 Outpatient R [facility] [id number] Univers 14:30:00 14:30:00 TIANNA viera [facility] [place] 2019-09-24 2019-09-24 Outpatient R LIUDMILA REA [facility] B [id number] Univers 14:30:00 14:30:00 LIUDMILA REA [facility] [place] 2019-08-31 2019-08-31 Orders Doctor LORENA 1.2.840.114 [id number] Univers 00:00:00 00:00:00 Only Unassigned, YOUNG [id number] ity of [place] [facility] 4.2.7.2.686 Sammy as [phone] [address] 2019-08-26 2019-08-26 Telephone [facility] 1.2.840.114 [id number] Univers 00:00:00 00:00:00 Wondiful A Health [id number] ity of [place] 4.2.7.2.686 Sammy as Professio [phone] [address] One 2019-08-25 2019-08-25 Telephone [facility] 1.2.840.114 [id number] Univers 00:00:00 00:00:00 Wondiful A Health [id number] ity of [place] [id number] Sammy as Professio [phone] [address] Office [facility] One 2019-08-24 2019-08-24 Telephone [facility] 1.2.840.114 [id number] Univers 00:00:00 00:00:00 Wondiful A Health [id number] ity of [place] [id number] Sammy as Professio [phone] [address] Office Building One 2019-08-20 2019-08-20 [place] [facility] 1.2.840.114 [id number] Univers 00:00:00 00:00:00 Wondiful A Health [id number] ity of [place] 4.2.7.2.686 Sammy as Professio [phone] [address] Office [facility] One 2019-08-17 2019-08-17 Office [facility] 1.2.840.114 [id number] Univers 14:11:27 15:10:31 Visit Wondiful A Health 350.1.13.10 ity of [place] [id number] Sammy as Professio [phone] [address] Office [facility] One 2019-08-17 2019-08-17 Case [facility] 1.2.840.114 [id number] Univers 00:00:00 00:00:00 Management Wondiful A Health 350.1.13.10 ity of [place] 4.2.7.2.686 Sammy as Professio [phone] [address] Office Building One 2019-08-17 2019-08-17 [place] [facility] 1.2.840.114 [id number] Univers 00:00:00 00:00:00 Wondiful A Health 350.1.13.10 ity of [place] 4.2.7.2.686 Sammy as Professio [phone] [address] Office Building One 2019-08-11 2019-08-11 Emergency Tre, [facility] 1.2.840.114 [id number] [facility] 13:53:43 14:45:00 Jenny Sanders 350.1.13.10 [place]2.[place] [phone] [facility] [address] [place] 2019-08-10 2019-08-10 Office Carey [facility] 1.2.840.114 [id number] [facility] 15:38:42 16:46:12 Visit Wontatyanaful A Health 350.1.13.10 ity of [place] 4.2.7.2.686 Sammy as Professio [phone] [address] Office [facility] 2019-08-06 2019-08-06 Patient Doctor [facility] 1.2.840.114 [id number] Univers 00:00:00 00:00:00 Secure Msg Unassigned, Health 350.1.13.10 ity of [place] 4.2.7.2.686 Sammy as Professio [phone] [address] Office [facility] 2019-08-04 2019-08-04 Telephone Carey [facility] 1.2.840.114 [id number] Univers 00:00:00 00:00:00 Wontatyanaful A [place] 350.1.13.10 [place] [phone] [address] 2019-08-01 2019-08-01 [place] [facility] 1.2.840.114 [id number] Univers 00:00:00 00:00:00 Management Wontatyanaful [facility] 350.1.13.10 ity of [place] 4.2.7.2.686 Sammy as Professio [phone] [address] Office Building [facility] 2019-07-26 2019-07-26 Orders Doctor LORENA 1.2.840.114 [id number] Univers 00:00:00 00:00:00 Only Unassigned, YOUNG 350.1.13.10 ity of [place] [facility] [phone] [facility] [address] 2019-03-25 2019-03-26 Office Lucie [facility] 1.2.840.114 [id number] Univers 10:51:09 15:41:47 Visit [place] 350.1.13.10 it y of [place] 4.2.7.2.686 Sammy as Professio [phone] Ct dical nal [address] [place] Office Building One 2019-03-25 2019-03-25 Telephone Lucie [facility] [id number] Univers 00:00:00 00:00:00 [place] 350.1.13.10 it y of [place] 4.2.7.2.686 Sammy as Professio [phone] Ct dical nal 044 [facility] 2019-03-10 2019-03-10 Reptile Farmer 2, Adc Lab [facility] 1.2.840.114 [id number] Univers 10:05:41 10:20:41 Visit Liudmila Rea 350.1.13. 10 [place].2.[place] [phone] Ct dical nal 353 [facility] 2019-03-10 2019-03-10 Office Álvaro [facility] 1.2.840.114 [id number] Univers 09:29:46 10:00:45 Visit Liudmila Sanders 350.1.13.10 i [place]2.[place] [phone] Ct dical nal 134 [facility] Results This patient has no known results.
[2023-01-19] MEDS ORDERED: IBUPROFEN 200 MG TAB PO ONE (09:20)
[2023-01-19] MEDS ORDERED: CEPHALEXIN 250 MG CAP ONE (09:20)
[2023-01-19] MEDS ORDERED: LIDOCAINE 1% MPF 5 ML VIAL ONE (09:20)
[2023-01-19] MEDS ORDERED: MUPIROCIN 2% OINT 22GM TUBE TOP ONE (09:20)
[2023-01-19] MEDS ORDERED: TDAP (DIPHTH,PERTUSS(ACELL),TET VAC) 0.5 ML VIAL IMVAC ONE (09:21)
--- NOTE | 2023-01-19 09:52 | ER ---
Nurse's Notes [facility] Name: Tiana Jorge Age: 52 yrs Sex: Female : 1970 Arrival Date: 01/19/2023 Time: 08:51 Bed 20 Private MD: Diagnosis: Contusion of right knee;Laceration without foreign body, right lower leg-RIGHT KNEE;Osteoarthritis of knee, unspecified;Type 2 diabetes mellitus with hyperglycemia Presentation: 01/19 09:02 Chief complaint: Fell from tractor 30 mins [employer], c/o right knee pain 10/10. Small hb laceration noted to right knee, bleeding ocntrolled. Coronavirus screen: At this time, the client does not indicate any symptoms associated with coronavirus-19. Ebola Screen: No symptoms or risks identified at this time. Initial Sepsis Screen: Does the patient meet any 2 criteria? No. Patient's initial sepsis screen is negative. Does the patient have a suspected source of infection? No. Patient's initial sepsis screen is negative. Risk Assessment: Do you want to hurt yourself or someone else? Patient reports no desire to harm self or others. Onset of symptoms was January 19, 2023. 09:02 Method Of Arrival: Wheelchair hb 09:02 Acuity: YAHAIRA 4 hb Historical: - Allergies: 09:03 HYDROCODONE (Vomiting); hb 09:03 Morphine (Vomiting); hb - Home Meds: 09:03 Lisinopril Oral [Active]; rosuvastatin oral [Active]; Ozempic subcutaneous [Active]; hb - PMHx: 09:03 Anemia; Diabetes - NIDDM; Hypertension; hb - Immunization history:: Adult Immunizations up to date. - Social history:: Smoking status: Patient denies any tobacco usage or history of. Screenin:07 [facility] ED Fall Risk Assessment (Adult) History of falling in the last 3 months, kc6 including since admission Yes- single mechanical fall (1 pt) Confusion or Disorientation No (0 pts) Intoxicated or Sedated No (0 pts) Impaired Gait No (0 pts) Mobility Assist Device Used No (0 pt) Altered Elimination No (0 pt) Score/Fall Risk Level 0 - 2 = Low Risk Oriented to surroundings, Maintained a safe environment, Educated pt \T\ family on fall prevention, incl call for assistance when getting out of bed, Assessed \T\ reinforced patient's understanding of fall precautions, Hourly rounding (assess needs \T\ fall precautionary measures) done. Abuse screen: Denies threats or abuse. Denies injuries from another. Nutritional screening: No deficits noted. Tuberculosis screening: No symptoms or risk factors identified. Assessment: 09:00 General: Appears in no apparent distress. comfortable, Behavior is calm, cooperative, kc6 appropriate for age. Pain: Complains of pain in right knee. Neuro: Level of Consciousness is awake, alert, obeys commands, Oriented to person, place, time, situation, Appropriate for age. Cardiovascular: Capillary refill < 3 seconds. Respiratory: Airway is patent Trachea midline Respiratory effort is even, unlabored, Respiratory pattern is regular, symmetrical. GI: No signs and/or symptoms were reported involving the gastrointestinal system. : No signs and/or symptoms were reported regarding the genitourinary system. EENT: No signs and/or symptoms were reported regarding the EENT system. Derm: Skin is healthy with good turgor, Skin is pink, warm \T\ dry. Wound noted right knee. Musculoskeletal: No signs and/or symptoms reported regarding the musculoskeletal system. Circulation, motion, and sensation intact. Capillary refill < 3 seconds, Range of motion: intact in all extremities. 10:00 Reassessment: Patient appears in no apparent distress at this time. No changes from kc6 previously documented assessment. Patient and/or family updated on plan of care and expected duration. Pain level reassessed. Patient is alert, oriented x 3, equal unlabored respirations, skin warm/dry/pink. Vital Signs: 09:02 BP 134 / 79; Pulse 68; Resp 16; Temp 98.1; Pulse Ox 100% on R/A; Weight 72.57 kg; hb Height 5 ft. 1 in. ; Pain 10/10; 09:02 Body Mass Index 30.23 (72.57 kg, 154.94 cm) hb 09:02 Pain Scale: Adult hb ED Course: 08:53 Patient arrived in ED. ts1 08:54 Keo Kumar MD is Attending Physician. roby 09:02 Arm band placed on. kc6 09:03 Triage completed. hb 09:07 Lesley Toledo RN is Primary Nurse. kc6 09:07 Patient has correct armband on for positive identification. Bed in low position. Call kc6 light in reach. Side rails up X 1. Adult w/ patient. 09:44 Knee Right 3 View XRAY In Process Unspecified. EDMS 09:51 Avtar Parham MD is Referral Physician. [facility] 10:17 No provider procedures requiring assistance completed. Patient did not have IV access kc6 during this emergency room visit. Administered Medications: 09:18 Drug: Tetanus Toxoid,Adsorbed IM 0.5 ml {Rehab Director: [employer] ([employer]). Exp: kc6 06/21/2023. Lot #: [id number]. } Route: IM; Site: right deltoid; 09:49 Follow up: Response: No adverse reaction kc6 09:19 Drug: Cephalexin PO 500 mg Route: PO; kc6 09:49 Follow up: Response: No adverse reaction kc6 09:19 Drug: Mupirocin Topical Ointment 2 % 1 application Route: Topical; Site: wound; kc6 09:19 Drug: Ibuprofen PO 600 mg Route: PO; kc6 09:49 Follow up: Response: No adverse reaction kc6 Medication: 10:18 VIS not applicable for this client. kc6 Outcome: 09:52 Discharge ordered by . [facility] 10:17 Discharged to home ambulatory, with significant other. kc6 10:17 Condition: improved 10:17 Discharge instructions given to patient, Instructed on discharge instructions, follow up and referral plans. medication usage, Demonstrated understanding of instructions, follow-up care, medications, Prescriptions given X 3. 10:19 Patient left the ED. kc6 Signatures: Dispatcher [employer] EDAK Keo Kumar MD MD cha Baxter, Heather, RN RN hb Campbell, Kaitlyn, RN RN Kelly Garland [facility] ts1
--- NOTE | 2023-01-19 09:52 | EDPHYS ---
Physician Documentation [facility] Name: Tiana Jorge Age: 52 yrs Sex: Female : 1970 Arrival Date: 01/19/2023 Time: 08:51 Bed 20 Private MD: KATELYNN Physician Keo Kumar HPI: 01/19 09:08 This 52 yrs old Female presents to ER via Wheelchair with complaints of Knee roby Pain. 09:08 The patient presents with decreased range of motion, a laceration, pain, tenderness. roby The complaints affect the right knee. Context: The problem was sustained outdoors, resulted from a direct blow, by construction equipment, the patient can fully bear weight. Onset: The symptoms/episode began/occurred just prior to arrival. Modifying factors: The symptoms are alleviated by remaining still, the symptoms are aggravated by movement. Associated signs and symptoms: The patient has no apparent associated signs or symptoms. Severity of symptoms: At their worst the symptoms were mild, in the emergency department the symptoms are unchanged. The patient has not experienced similar symptoms in the past. Historical: - Allergies: 09:03 HYDROCODONE (Vomiting); hb 09:03 Morphine (Vomiting); hb - Home Meds: 09:03 Lisinopril Oral [Active]; rosuvastatin oral [Active]; Ozempic subcutaneous [Active]; hb - PMHx: 09:03 Anemia; Diabetes - NIDDM; Hypertension; hb - Immunization history:: Adult Immunizations up to date. - Social history:: Smoking status: Patient denies any tobacco usage or history of. ROS: 09:12 Constitutional: Negative for fever, chills, and weight loss, Eyes: Negative for injury, roby pain, redness, and discharge, ENT: Negative for injury, pain, and discharge, Neck: Negative for injury, pain, and swelling, Cardiovascular: Negative for chest pain, palpitations, and edema, Respiratory: Negative for shortness of breath, cough, wheezing, and pleuritic chest pain, Abdomen/GI: Negative for abdominal pain, nausea, vomiting, diarrhea, and constipation, Back: Negative for injury and pain, : Negative for injury, bleeding, discharge, and swelling, Skin: Negative for injury, rash, and discoloration, Neuro: Negative for headache, weakness, numbness, tingling, and seizure, Psych: Negative for depression, anxiety, suicide ideation, homicidal ideation, and hallucinations, Allergy/Immunology: Negative for hives, rash, and allergies, Endocrine: Negative for neck swelling, polydipsia, polyuria, polyphagia, and marked weight changes, Hematologic/Lymphatic: Negative for swollen nodes, abnormal bleeding, and unusual bruising. 09:12 MS/extremity: Positive for decreased range of motion, laceration, pain, of the right knee. 09:12 Skin: Positive for laceration(s), of the right knee. Exam: 09:12 Constitutional: This is a well developed, well nourished patient who is awake, alert, roby and in no acute distress. Head/Face: Normocephalic, atraumatic. Eyes: Pupils equal round and reactive to light, extra-ocular motions intact. Lids and lashes normal. Conjunctiva and sclera are non-icteric and not injected. Cornea within normal limits. Periorbital areas with no swelling, redness, or edema. ENT: Nares patent. No nasal discharge, no septal abnormalities noted. Tympanic membranes are normal and external auditory canals are clear. Oropharynx with no redness, swelling, or masses, exudates, or evidence of obstruction, uvula midline. Mucous membranes moist. Neck: Trachea midline, no thyromegaly or masses palpated, and no cervical lymphadenopathy. Supple, full range of motion without nuchal rigidity, or vertebral point tenderness. No Meningismus. Chest/axilla: Normal chest wall appearance and motion. Nontender with no deformity. No lesions are appreciated. Cardiovascular: Regular rate and rhythm with a normal S1 and S2. No gallops, murmurs, or rubs. Normal PMI, no JVD. No pulse deficits. Respiratory: Lungs have equal breath sounds bilaterally, clear to auscultation and percussion. No rales, rhonchi or wheezes noted. No increased work of breathing, no retractions or nasal flaring. Abdomen/GI: Soft, non-tender, with normal bowel sounds. No distension or tympany. No guarding or rebound. No evidence of tenderness throughout. Back: No spinal tenderness. No costovertebral tenderness. Full range of motion. Skin: Warm, dry with normal turgor. Normal color with no rashes, no lesions, and no evidence of cellulitis. Neuro: Awake and alert, GCS 15, oriented to person, place, time, and situation. Cranial nerves II-XII grossly intact. Motor strength 5/5 in all extremities. Sensory grossly intact. Cerebellar exam normal. Normal gait. Psych: Awake, alert, with orientation to person, place and time. Behavior, mood, and affect are within normal limits. 09:12 Musculoskeletal/extremity: Extremities: grossly normal except: deformity, laceration, pain, ROM: limited active range of motion due to pain, limited passive range of motion due to pain, in the right knee, Circulation is intact in all extremities. Sensation intact. Compartment Syndrome exam of affected extremity: is normal. DVT Exam: negative Homans' sign noted on exam, no appreciated bluish discoloration, no erythema, no increased warmth, pain, swelling, tenderness. Vital Signs: 09:02 BP 134 / 79; Pulse 68; Resp 16; Temp 98.1; Pulse Ox 100% on R/A; Weight 72.57 kg; hb Height 5 ft. 1 in. ; Pain 10/10; 09:02 Body Mass Index 30.23 (72.57 kg, 154.94 cm) hb 09:02 Pain Scale: Adult hb Laceration: 10:14 Wound Repair of 1.5cm ( 0.6in ) subcutaneous laceration to right knee. Irregularly roby shaped.. Distal neuro/vascular/tendon intact. Anesthesia: Local anesthetic administered with 6 mls of 1% lidocaine. Wound prep: Moderate cleansing by me, Wound irrigation. Skin closed with 2 5-0 Prolene using interrupted sutures and sterile technique. Dressed with Neosporin, non-adherent dressing. Patient tolerated well. MDM: 08:54 Patient medically screened. [facility] 09:14 Data reviewed: vital signs, nurses notes, lab test result(s). [facility] 01/19 09:07 Order name: Knee Right 3 View XRAY [facility] 01/19 09:07 Order name: Ice pack; Complete Time: 09:08 [facility] Administered Medications: 09:18 Drug: Tetanus Toxoid,Adsorbed IM 0.5 ml {Varying Exceptionalities Teacher: [employer] ([employer]). Exp: kc6 06/21/2023. Lot #: [id number]. } Route: IM; Site: right deltoid; 09:49 Follow up: Response: No adverse reaction [facility] 09:19 Drug: Cephalexin PO 500 mg Route: PO; kc6 09:49 Follow up: Response: No adverse reaction kc6 09:19 Drug: Mupirocin Topical Ointment 2 % 1 application Route: Topical; Site: wound; kc6 09:19 Drug: Ibuprofen PO 600 mg Route: PO; kc6 09:49 Follow up: Response: No adverse reaction kc6 Disposition Summary: 01/19/23 09:52 Discharge Ordered Location: Home [facility] Problem: new roby Symptoms: have improved roby Condition: Stable roby Diagnosis - Contusion of right knee roby - Laceration without foreign body, right lower leg - RIGHT KNEE roby - Osteoarthritis of knee, unspecified roby - Type 2 diabetes mellitus with hyperglycemia [facility] Followup: roby - With: Private Physician - When: 2 - 3 days - Reason: Recheck today's complaints, Continuance of care, Re-evaluation by your physician Followup: roby - With: - When: 2 - 3 days - Reason: Recheck today's complaints, Re-evaluation by your physician Discharge Instructions: - Discharge Summary Sheet [facility] - Osteoarthritis roby - Acute Knee Pain, Adult [facility] - Laceration Care, Adult, Vrxb-kg-[id number] [facility] - Diabetes Mellitus and Nutrition, Adult [facility] - Acute Knee Pain, Adult, Ofxa-ih-Wrzi [facility] Forms: - Medication Reconciliation Form [facility] - Thank You Letter [facility] - Antibiotic Education [facility] - Prescription Opioid Use [facility] - [email or web address] [facility] Prescriptions: - Centany 2 % Topical ointment - apply 1 application by TOPICAL route 3 times per day; 15 gram; Refills: 0, [facility] Product Selection Permitted - Cephalexin 500 mg Oral Capsule - take 1 capsule by ORAL route every 6 hours for 7 days; 28 capsule; Refills: 0, [facility] Product Selection Permitted - Tramadol 50 mg Oral Tablet - take 1 tablet by ORAL route every 8 hours as needed; 20 tablet; Refills: 0, [facility] Product Selection Permitted Signatures: Dispatcher [employer] Keo Negron MD MD cha Baxter, Heather, RN RN hb Campbell, Kaitlyn, RN RN kc6
--- NOTE | 2023-01-19 09:58 | RAD REPORT ---
EXAM DESCRIPTION: RAD - Knee Right 3 View - 01/19/2023 9:42 am CLINICAL HISTORY: PAIN COMPARISON: <Comparisons> TECHNIQUE: Right knee, 3 views. FINDINGS: No fracture, dislocation or periosteal reaction.No joint effusion seen. Moderate to advanc ed tricompartmental osteoarthritic changes, with joint space narrowing most pronounced medially. Smal l faint focus of calcification projecting over the quadriceps tendon, could relate to sequelae of rem ote injury. Clinical concerns for internal derangement or occult bony injury could be further assessed with MR im aging. IMPRESSION: No acute osseus abnormality. Degenerative changes as above.
[2023-01-19 10:24] VITALS: BP 134/79; TEMP 98.1; O2SAT 100
== END 2023-01-19 10:19 | disposition home or self-care (01) ==
LOC: ER 08:51
PROC: 0HQKXZZ Repair Right Lower Leg Skin, External Approach (ICD-10-PCS; principal; 2023-01-19)
DX: S81.011A Laceration without foreign body, right knee, initial encounter (principal); M17.11 Unilateral primary osteoarthritis, right knee; E11.65 Type 2 diabetes mellitus with hyperglycemia; Z88.5 Allergy status to narcotic agent; Z79.4 Long term (current) use of insulin; Z23 Encounter for immunization
CPT/HCPCS: 73562; 90471; 99284; 12001; J2001